=== PATIENT | male | born 1955 | race Caucasian/White ===

== ENCOUNTER 2017-08-07 12:53 | Emergency (ER) | payer OTHER ==
[~2017-08-07] VITALS: Ht 185.4 cm; Wt 88.5 kg
[2017-08-07 13:44] LABS: Eosinophils # (auto) 0.1 uL
[2017-08-07 13:45] LABS: Basophils # (auto) 0.1 uL; Basophils % (auto) 0.7 % (0.0-2.0); Eosinophils % (auto) 0.9 % (0.0-7.0); Hematocrit 52.4 % (41.0-53.0); Hemoglobin 17.5 g/dL (13.5-17.5); Lymphocytes # (auto) 1.3 uL; Lymphocytes % (auto) 14.8 % (10.0-50.0); Mean Corpuscular Hemoglobin 34.7 pg (28.0-32.0); Mean Corpuscular Hgb Conc. 33.5 g/dL (32.0-36.0); Mean Corpuscular Volume 103.6 fL (80.0-100.0); Mean Platelet Volume 7.8 fL (6.9-10.8); Monocytes # (auto) 0.6 uL; Monocytes % (auto) 7.4 % (0.0-12.0); Neutrophils # (auto) 6.7 uL; Neutrophils % (auto) 76.2 % (37.0-80.0); Platelet Count (auto) 262 10^3/uL (140-450); Red Cell Distribution Width 14.2 % (11.8-14.3); White Blood Cell 8.8 10^3/uL (4.4-10.8)
[2017-08-07 14:08] LABS: Albumin 4.1 g/dL (3.4-5.0); BUN/Creatinine Ratio 10.5; Bilirubin, Total 0.4 mg/dL (0.2-1.0); Calcium 9.4 mg/dL (8.5-10.1); Total Protein 7.9 g/dL (6.4-8.2)
[2017-08-07 14:40] LABS: Potassium 5.7 mmol/L (3.5-5.1)
[2017-08-07 14:52] VITALS: BP 142/88
[2017-08-07 15:20] LABS: Urine Bilirubin Negative (Negative); Urine Blood Negative /uL (Negative); Urine Color Yellow (Yellow); Urine Glucose TRACE mg/dL (Normal); Urine Ketone Negative (Negative); Urine Mucus FEW (None Seen); Urine Nitrite Negative (Negative); Urine RBC 1 /hpf (0 - 3); Urine Sperm PRESENT /hpf (None Seen); Urine Squamous Epithelial Cell FEW /hpf (<5); Urine Urobilinogen Normal (Negative); Urine pH 5.5 (5.0-8.0)
== END 2017-08-07 15:56 | disposition home or self-care (01) ==
LOC: ER 12:53
DX: K80.20 Calculus of gallbladder without cholecystitis without obstruction (principal); I10 Essential (primary) hypertension; F17.210 Nicotine dependence, cigarettes, uncomplicated
CPT/HCPCS: 36415; 74176; 80053; 81001; 84132; 85025; 93005

== ENCOUNTER 2019-12-20 08:31 | Inpatient (IN) | payer OTHER, SELFPAY ==
[~2019-12-20] VITALS: Ht 185.4 cm; Wt 89.6 kg
[2019-12-20] MEDS ORDERED: dilTIAZem 25 MG/5 ML VIAL IV ONE (09:00)
[2019-12-20] MEDS ORDERED: dilTIAZem 125mg/125ml BAG KIT 125 ML IV ONE (09:00)
[2019-12-20 09:42] LABS: Basophils # (auto) 0 10 ^3/uL (0-0.2); Basophils % (auto) 0.3 % (0.0-2.0); Eosinophils # (auto) 0 10 ^3/uL (0-0.8); Eosinophils % (auto) 0.1 % (0.0-7.0); Hematocrit 48.6 % (41.0-53.0); Hemoglobin 16.7 g/dL (13.5-17.5); Lymphocytes # (auto) 0.9 10 ^3/uL (0.4-5.4); Lymphocytes % (auto) 9.1 % (10.0-50.0); Mean Corpuscular Hemoglobin 32.3 pg (28.0-32.0); Mean Corpuscular Hgb Conc. 34.4 g/dL (32.0-36.0); Mean Corpuscular Volume 93.8 fL (80.0-100.0); Monocytes # (auto) 0.8 10 ^3/uL (0-1.3); Monocytes % (auto) 7.7 % (0.0-12.0); Neutrophils # (auto) 8.1 10 ^3/uL (1.6-8.6); Neutrophils % (auto) 82.8 % (37.0-80.0); Nucleated Red Blood Cells % 0.1 %; Red Blood Cells 5.18 10^6/uL (4.5-5.90); Red Cell Distribution Width 13.8 % (11.8-14.3); White Blood Cell 9.8 10^3/uL (4.4-10.8)
[2019-12-20 09:59] LABS: Albumin 2.9 g/dL (3.4-5.0); Anion Gap 9 (5-15); Calcium 8.2 mg/dL (8.5-10.1); Carbon Dioxide 23 mmol/L (21-32); Chloride 106 mmol/L (98-107); Glucose 112 mg/dL (74-106); Potassium 3.6 mmol/L (3.5-5.1); Sodium 138 mmol/L (136-145)
[2019-12-20 10:04] LABS: Alanine Aminotransferase 24 U/L (16-61); Alkaline Phosphatase 91 U/L (45-117); Aspartate Aminotransferase 26 U/L (15-37); Bilirubin, Total 0.5 mg/dL (0.2-1.0); GFR African American 95 mL/min; GFR Non-African American 79 mL/min; Platelet Count (auto) 165 10^3/uL (140-450); Total Protein 7.4 g/dL (6.4-8.2)
[2019-12-20] MEDS ORDERED: SODIUM CHLORIDE 0.9% 1,000 ML IV ONE ×2 (11:00→12:45)
[2019-12-20 11:28] LABS: BUN/Creatinine Ratio 14.7; Blood Urea Nitrogen 15 mg/dL (7-18)
[2019-12-20 12:00] VITALS: BP 122/75
[2019-12-20] MEDS ORDERED: ACETAMINOPHEN 325 MG TAB PO ONE (12:00)
[2019-12-20 12:04] LABS: Urine Bacteria NONE SEEN /hpf (None Seen); Urine Blood Negative /uL (Negative); Urine Hyaline Cast FEW /lpf (0 - 2); Urine Mucus FEW (None Seen); Urine WBC 2 /hpf (0 - 3)
[2019-12-20] MEDS ORDERED: AZITHROMYCIN 500MG/ 250ML 250 ML IV ONE (12:15)
[2019-12-20] MEDS ORDERED: CHOLECALCIFEROL (VITD3) 1,000UNIT=25mCg TAB PO ONE (12:15)
[2019-12-20] MEDS ORDERED: ASCORBIC ACID 500 MG TAB PO ONE (12:15)
[2019-12-20] MEDS ORDERED: ZINC SULFATE 220mg CAP or TAB PO ONE (12:15)
[2019-12-20 12:20] LABS: Amphetamine Screen, Urine POSITIVE (NEGATIVE); Barbiturate Scree,Urine NEGATIVE (NEGATIVE); Benzodiazephine Screen, Urine NEGATIVE (NEGATIVE); Cannabinoid Screen, Urine NEGATIVE (NEGATIVE); Cocaine Screen, Urine NEGATIVE (NEGATIVE); Phencyclidine Screen, Urine NEGATIVE (NEGATIVE)
[2019-12-20 12:27] LABS: Opiate Scree,Urine POSITIVE (NEGATIVE)
[2019-12-20] MEDS ORDERED: AMIODARONE HCL 150 MG in D5W 5% 100 ML IV ONE (13:30)
[2019-12-20] MEDS ORDERED: hydrALAZINE HCL 20 MG/ML VL IV PRN (13:30)
[2019-12-20] MEDS ORDERED: NITROGLYCERIN 0.4 MG SL TAB SL PRN (13:30)
[2019-12-20] MEDS ORDERED: ACETAMINOPHEN 325 MG TAB PO PRN (13:30)
[2019-12-20] MEDS ORDERED: PROMETHAZINE HCL 25 MG/ML 1ML IV PRN (13:30)
[2019-12-20] MEDS ORDERED: AMIODARONE 450mg/250ml AE 250 ML IV SCH (13:30)
[2019-12-20] MEDS ORDERED: LEVALBUTEROL HCL 1.25 MG/3 ML NEB NEB PRN (13:30)
[2019-12-20] MEDS ORDERED: MORPHINE SULF INJ 2 MG/ML SYRINGE 1ML IV PRN (13:30)
--- NOTE | 2019-12-20 14:41 | NUR ---
Received Belt Measurer consult to speak with pt about illicit drugs. However pt is still in the Er and he is a R/O Covid. Will see pt when he is transferred to the [facility].
[2019-12-20 16:00] VITALS: BP 124/75
--- NOTE | 2019-12-20 16:17 | NUR ---
Admit to [facility], [facility] 1510 [facility] gurney on front desk monitor, and portable 02. Patient transfered to bed, connected to unit monitoring and oxygen, and weighed by bedscale. Patient oriented to Dawn Lawrence, RN primary RN, unit, room, bed, and unit policies regarding patient care and visiting hours. All questions and concerns addressed, patient verbalized understanding. NOTE: Arrived awake and interacting appropriately. Was in AFIB RVR upon arrival to ER and medication intervention done. Arrived in NSR with a rate at 96. Will continue with amiodarone protocol as ordered. Remains weak but can move all extremties and participate with self care. Is a rule out Covid-19 and isolation precations put in place and explained to patient.
[2019-12-20 16:23] VITALS: BP 120/74
--- NOTE | 2019-12-20 18:51 | NUR ---
Has been sleeping since arrival in unit. Only ate a few bites of dinner. In no acute distress and vitals signs remain stable. Continue current plan of care.
--- NOTE | 2019-12-20 19:15 | NUR ---
OPENING NOTE RECEIVED REPORT FROM SAMREEN RN. PATIENT IN ISOLATION FOR POSSIBLE COVID-19. FOLLOWING HOSPITAL POLICY FOR COVID ISOLATIONS. PT AOX4, REQUESTING PAIN PILL FOR 7/10 PAIN AND REQUESTING SLEEPING MEDICATION SAYING HE HASN'T SLEPT WELL SINCE ARRIVAL TO HOSPITAL. ON 2L NC STATING >95% SPO2 WITH RESPIRATIONS 25-28. PATIENT STATES IT IS DIFFICULT TO BREATH. HOB >30, PROMOTED BREATHING AND RESPIRATIONS. SR 97 ON GERIATRICIAN, WITH BP 128/81. AMIO @ 33.33M/HR. COMMUNICATION ORDER TO STOP AMIO AT MIDNIGHT PER MCCLELLAND. RIGHT AND LEFT AC IV PATENT. PATIENT INSTRUCTED TO USE CALL LIGHT FOR ASSISTANCE. ALL FALL AND SAFETY PRECAUTIONS IN PLACE. FOR MORE INFORMATIONS SEE INTERVENTIONS.
[2019-12-20] MEDS: HYDROcodone-ACET 5/325MG TAB PO PRN (20:41)
[2019-12-20] MEDS ORDERED: TEMAZEPAM 15 MG CAP PO ONE (20:45)
--- NOTE | 2019-12-20 20:47 | NUR ---
PATIENT COMPLAINING OF INSOMNIA PAGED MD WILDER ORDER FOR SLEEPING MEDICATION. ORDER RECEIVED
[2019-12-20] MEDS: ALBUTEROL SULF HFA 90MCG INH 200DOSE IN SCH (21:37)
[2019-12-20] MEDS: ENOXAPARIN SOD 100 MG/1 ML SYRINGE SC SCH (22:08)
[2019-12-20 23:23] VITALS: BP 120/74
--- NOTE | 2019-12-21 | NUR ---
BRENDA HELD AT THIS TIME.
[2019-12-21 04:00] VITALS: BP 119/64
[2019-12-21 05:49] LABS: Basophils # (auto) 0 10 ^3/uL (0-0.2); Basophils % (auto) 0.2 % (0.0-2.0); Eosinophils # (auto) 0 10 ^3/uL (0-0.8); Hematocrit 45.3 % (41.0-53.0); Hemoglobin 15.1 g/dL (13.5-17.5); Lymphocytes # (auto) 0.7 10 ^3/uL (0.4-5.4); Lymphocytes % (auto) 9.1 % (10.0-50.0); Mean Corpuscular Hemoglobin 31.4 pg (28.0-32.0); Mean Corpuscular Hgb Conc. 33.3 g/dL (32.0-36.0); Mean Corpuscular Volume 94.3 fL (80.0-100.0); Monocytes # (auto) 0.7 10 ^3/uL (0-1.3); Monocytes % (auto) 8.8 % (0.0-12.0); Neutrophils # (auto) 6.3 10 ^3/uL (1.6-8.6); Neutrophils % (auto) 81.9 % (37.0-80.0); Nucleated Red Blood Cells % 0.1 %; Platelet Count (auto) 180 10^3/uL (140-450); Red Blood Cells 4.81 10^6/uL (4.5-5.90); Red Cell Distribution Width 13.7 % (11.8-14.3); White Blood Cell 7.7 10^3/uL (4.4-10.8)
[2019-12-21 06:00] VITALS: BP 123/74
[2019-12-21 06:04] LABS: Calcium 7.9 mg/dL (8.5-10.1); Potassium 3.5 mmol/L (3.5-5.1)
[2019-12-21 06:06] LABS: BUN/Creatinine Ratio 14.5
[2019-12-21] MEDS: ALBUTEROL SULF HFA 90MCG INH 200DOSE IN SCH ×3 (06:32→22:00)
[2019-12-21 08:00] VITALS: BP 103/60
--- NOTE | 2019-12-21 08:00 | NUR ---
ASSESSMENT COMPLETED - SEE FLOW SHEET. PATIENT REMAINS IN AIRBORNE/DROPLET ISOLATION FOR R/O COVID.
[2019-12-21] MEDS: ENOXAPARIN SOD 100 MG/1 ML SYRINGE SC SCH ×2 (10:26→22:00)
[2019-12-21 12:00] VITALS: BP 114/67
--- NOTE | 2019-12-21 13:50 | NUR ---
Respiratory note: RN ABLE TO ADMINISTER BREATHING TX VIA MDI WITH SPACER, NO ADVERSE REACTIONS NOTED. SPO2 95% ON 2L NC, HR 87, RR 25, BS COARSE/DIMINISHED. WILL CONTINUE TO MONITOR PT.
--- NOTE | 2019-12-21 15:45 | NUR ---
OCCASIONAL COUGH NOTED - PATIENT STATES EXPECTORATING SM AMT THIN WHITE SPUTUM. LUNGS REMAIN CLEAR AND DIMINISHED BILAT.
[2019-12-21 16:00] VITALS: BP 126/67
--- NOTE | 2019-12-21 16:45 | NUR ---
CALL PLACED TO DR CARLIN RE: NO ATB FOR PATIENT AND K+ 3.5 - ORDER RECEIVED VIA [employer].
--- NOTE | 2019-12-21 17:10 | NUR ---
PLACED CALL TO DR CARLIN RE: PULMONARY CONSULT - NO ORDERS RECEIVED, STATES WILL COME SEE PATIENT THIS EVENING.
[2019-12-21] MEDS ORDERED: POTASSIUM CHL 20 Meq TABLET PO ONE (17:15)
[2019-12-21] MEDS ORDERED: levoFLOXacin 500MG 100 ML IV SCH (17:15)
--- NOTE | 2019-12-21 19:45 | NUR ---
Opening Shift Note: A&Ox4, resting in bed. Currently on 2LO2 via NC; patient states he does not wear at home; pain level is 8-10/10 generalized; and currently bedrest, at baseline is independent without the use of assistive devices. Bed locked in lowest position, side rails up x2, call light within reach, and bed alarm on for patient safety. Airborne/contact/droplet precautions (r/o COVID 19); results still pending. IV 18 g in left AC IID inserted on 12/20/19. Skin intact, no open wounds. POC discussed and questions answered. Will continue to round/reposition prn.
[2019-12-21 20:00] VITALS: BP 110/68
[2019-12-21] MEDS: HYDROcodone-ACET 5/325MG TAB PO PRN (20:00)
--- NOTE | 2019-12-21 22:00 | NUR ---
RT NOTE RT NOTE MDI GIVEN BY RN WITHOUT INCIDENT. RT MADE SURE RN WAS FAMILIAR WITH THE PROPER ADMINISTRATION OF MDI.
[2019-12-22] VITALS: BP_SYST 113; BP_SYST 128; BP_DIAS 68; BP_DIAS 79
[2019-12-22] MEDS ORDERED: AMIODARONE HCL (50 MG/ ML) 3 ML VIAL IV ONE (00:32)
[2019-12-22] MEDS ORDERED: AMIODARONE 450mg/250ml AE 250 ML IV ONE (00:32)
[2019-12-22] MEDS ORDERED: AMIODARONE HCL 150 MG in D5W 5% 100 ML IV ONE (00:45)
--- NOTE | 2019-12-22 00:45 | NUR ---
Rhythm conversion to Aflutter: Per security system technician, patient rhythm changed from ST with PACs to Aflutter/Afib in the 100s to 130s. Per Dr. Banda telephone order, ok to start amiodarone drip protocol again if rhythm changed to Afib. Started bolus and will follow protocol orders.
[2019-12-22] MEDS ORDERED: AMIODARONE 450mg/250ml AE 250 ML IV SCH ×2 (00:52→06:52)
[2019-12-22 04:00] VITALS: BP 121/64
[2019-12-22 06:32] LABS: Basophils # (auto) 0 10 ^3/uL (0-0.2); Basophils % (auto) 0.4 % (0.0-2.0); Eosinophils # (auto) 0 10 ^3/uL (0-0.8); Eosinophils % (auto) 0.2 % (0.0-7.0); Hematocrit 44.6 % (41.0-53.0); Lymphocytes # (auto) 0.7 10 ^3/uL (0.4-5.4); Lymphocytes % (auto) 8.3 % (10.0-50.0); Mean Corpuscular Hemoglobin 31.7 pg (28.0-32.0); Mean Corpuscular Hgb Conc. 33.7 g/dL (32.0-36.0); Mean Corpuscular Volume 94.1 fL (80.0-100.0); Neutrophils # (auto) 6.7 10 ^3/uL (1.6-8.6); Neutrophils % (auto) 79.1 % (37.0-80.0); Nucleated Red Blood Cells % 0.1 %; Platelet Count (auto) 214 10^3/uL (140-450); Red Blood Cells 4.74 10^6/uL (4.5-5.90); Red Cell Distribution Width 13.5 % (11.8-14.3); White Blood Cell 8.5 10^3/uL (4.4-10.8)
[2019-12-22] MEDS: ALBUTEROL SULF HFA 90MCG INH 200DOSE IN SCH ×3 (06:37→22:31)
[2019-12-22 06:57] LABS: Potassium 4.1 mmol/L (3.5-5.1)
[2019-12-22 07:20] LABS: BUN/Creatinine Ratio 13.4; Calcium 8.3 mg/dL (8.5-10.1)
--- NOTE | 2019-12-22 07:30 | NUR ---
Positive COVID -19 test per Norma in lab. CCT to pickup results and will place in patient's hard chart.
[2019-12-22 08:00] VITALS: BP 104/66
--- NOTE | 2019-12-22 08:00 | NUR ---
MD Paged Dr. Trinidad to notify him of critical lab: POSITIVE COVID-19. Awaiting for MD to call back.
--- NOTE | 2019-12-22 08:55 | NUR ---
MD Dr. Promise Saxena called and updated on patient condition, aware of AM labs and new orders received, to input into system. Awaiting for orders to be placed in system. Addendum: 12/22/19 at 0859 by BLAINE JEAN RN WRONG PATIENT VOID THIS NOTE
--- NOTE | 2019-12-22 08:55 | NUR ---
MD Dr. Promise Saxena called back and aware of critical labs with no new orders received.
[2019-12-22] MEDS: ENOXAPARIN SOD 100 MG/1 ML SYRINGE SC SCH ×2 (09:52→22:55)
--- NOTE | 2019-12-22 10:00 | NUR ---
NUTRITION Patient ate 100% of breakfast. Patient tolerated well.
--- NOTE | 2019-12-22 10:55 | NUR ---
MD Dr. Dhillon at unit updated on patient condition with no new orders received. Will continue to monitor patient.
[2019-12-22 12:00] VITALS: BP 106/72
[2019-12-22] MEDS: AMIODARONE 450mg/250ml AE 250 ML IV SCH ×2 (12:00→22:57)
--- NOTE | 2019-12-22 12:15 | NUR ---
Received phone call from Dr. Promise Saxena regarding: new orders input in system. states "he spoke to patient and informed him of being COVID-19.
--- NOTE | 2019-12-22 13:24 | NUR ---
Called Dr. Arias at [phone] Trinidad to get treatment orders for COVID-19. Awaiting call back.
--- NOTE | 2019-12-22 13:30 | NUR ---
Paged Dr. Dhillon awaiting for to call this RN back for Amiodarone orders for PO.
--- NOTE | 2019-12-22 14:00 | NUR ---
NUTRITION Patient ate 100% of lunch. Patient tolerated well.
[2019-12-22 16:00] VITALS: BP 117/62
[2019-12-22] MEDS ORDERED: hydrOXYchloroQUINE SULFATE 200 MG TAB PO ONE (16:45)
--- NOTE | 2019-12-22 16:50 | NUR ---
MD Dr. Arias at bedside updated on patient condition with new orders, this RN to input into system. Will carry out orders per MD.
[2019-12-22] MEDS ORDERED: ZINC SULFATE 220mg CAP or TAB PO ONE (18:00)
[2019-12-22] MEDS ORDERED: ASCORBIC ACID 500 MG TAB PO ONE (18:00)
[2019-12-22] MEDS ORDERED: CHOLECALCIFEROL (VITD3) 1,000UNIT=25mCg TAB PO ONE (18:00)
[2019-12-22] MEDS: HYDROcodone-ACET 5/325MG TAB PO PRN (18:54)
[2019-12-22 20:00] VITALS: BP 116/63
--- NOTE | 2019-12-22 20:00 | NUR ---
Opening Shift Note Assumed care of patient with airborn isolation, awake and alert. Breathing on O2NC 1LPM, No S/S of distress/SOB, occasional coughing, will taper off O2 to room air and monitor as order. 20G IV at right AC infusing Amiodarone 0.5/hr, CDI site, will page Dr. Dhillon per Dr. Promise Saxena order regarding changing Amiodarone IV to PO. Due to void. Bed in low position, call light within reach, fall and safety precaution in place, all alarms are audible. Instructed on POC and to call for assist PRN, will continue to monitor for changes Q1hr and PRN.
[2019-12-22] MEDS: SODIUM CHLORIDE 0.9% 1,000 ML IV SCH (20:27)
--- NOTE | 2019-12-22 20:30 | NUR ---
D/C Amiodarone, Afib Paged Dr. Dhillon regarding Amiodarone, ordered to d/c amiodarone IV, no Amiodarone PO to start, TORB and verified. Amiodarone d/c at 20.30pm 21.15pm EKG turned back and forth between SR, ST with PAC, MAT, Af and AF rate low 100's to 160's. SBP 110's, will continue to monitor and page MD if sustained. 21.41pm Paged Dr. Dhillon. 22.46pm Paged Dr. Dhillon, ordered to resume Amiodarone IV at 0.5/hr.
--- NOTE | 2019-12-22 21:00 | NUR ---
Sleeping pill Pt requested sleeping pill, paged Dr. Promise Saxena. New order received from covering MD, Dr. Rocha, see EMAR for details.
[2019-12-22] MEDS ORDERED: TEMAZEPAM 15 MG CAP PO ONE (21:45)
[2019-12-22] MEDS ORDERED: hydrOXYchloroQUINE SULFATE 200 MG TAB PO SCH (22:00)
[2019-12-22] MEDS ORDERED: AZITHROMYCIN DIHYD 500 MG VIAL IV SCH (22:00)
[2019-12-22] MEDS ORDERED: AZITHROMYCIN 500MG/ 250ML 250 ML IV ONE (22:59)
[2019-12-23] MEDS ORDERED: ZINC SULFATE 220mg CAP or TAB PO SCH
[2019-12-23] MEDS ORDERED: AZITHROMYCIN 500MG/ 250ML 250 ML IV SCH
[2019-12-23 01:17] LABS: Magnesium 2.5 mg/dL (1.6-2.6)
[2019-12-23 01:26] LABS: CRP High Sensitivity 11.3 mg/dL (< 0.3)
[2019-12-23] MEDS: AMIODARONE 450mg/250ml AE 250 ML IV SCH (03:28)
--- NOTE | 2019-12-23 03:55 | NUR ---
Patient bathe/linen change Patient given bed bath. Pt able to wipe self at the front and private area, assisted Pt clean the back area. Skin integrity assessed for any changes, no new changes. Linens changed. Pt able to turn self well, reported mild SOB with activities. Patient repositioned for comfort.
[2019-12-23 04:00] VITALS: BP 85/55
[2019-12-23] MEDS: ALBUTEROL SULF HFA 90MCG INH 200DOSE IN SCH ×3 (06:00→22:15)
[2019-12-23 07:16] LABS: Basophils # (auto) 0 10 ^3/uL (0-0.2); Basophils % (auto) 0.6 % (0.0-2.0); Eosinophils # (auto) 0 10 ^3/uL (0-0.8); Eosinophils % (auto) 0.3 % (0.0-7.0); Hemoglobin 14.7 g/dL (13.5-17.5); Lymphocytes # (auto) 0.6 10 ^3/uL (0.4-5.4); Lymphocytes % (auto) 7.6 % (10.0-50.0); Mean Corpuscular Hemoglobin 32.2 pg (28.0-32.0); Mean Corpuscular Hgb Conc. 34.3 g/dL (32.0-36.0); Mean Corpuscular Volume 93.9 fL (80.0-100.0); Monocytes # (auto) 0.9 10 ^3/uL (0-1.3); Monocytes % (auto) 11.5 % (0.0-12.0); Neutrophils # (auto) 6.1 10 ^3/uL (1.6-8.6); Platelet Count (auto) 250 10^3/uL (140-450); Red Blood Cells 4.58 10^6/uL (4.5-5.90); Red Cell Distribution Width 13.2 % (11.8-14.3); White Blood Cell 7.6 10^3/uL (4.4-10.8)
[2019-12-23 07:46] LABS: Albumin 2.4 g/dL (3.4-5.0); Calcium 8.1 mg/dL (8.5-10.1); Potassium 3.8 mmol/L (3.5-5.1)
[2019-12-23 07:50] LABS: BUN/Creatinine Ratio 13.4; Bilirubin, Total 0.6 mg/dL (0.2-1.0); Total Protein 6.8 g/dL (6.4-8.2)
[2019-12-23] MEDS: SODIUM CHLORIDE 0.9% 1,000 ML IV SCH ×2 (07:57→17:53)
[2019-12-23] MEDS: ASCORBIC ACID 500 MG TAB PO SCH (08:50)
[2019-12-23] MEDS: ENOXAPARIN SOD 100 MG/1 ML SYRINGE SC SCH ×2 (08:50→20:50)
[2019-12-23] MEDS: CHOLECALCIFEROL (VITD3) 1,000UNIT=25mCg TAB PO SCH (08:50)
[2019-12-23] MEDS: ZINC SULFATE 220mg CAP or TAB PO SCH (08:50)
[2019-12-23] MEDS: HYDROcodone-ACET 5/325MG TAB PO PRN ×2 (09:10→20:30)
--- NOTE | 2019-12-23 14:25 | NUR ---
DR. WHITE AT BEDSIDE: MD AT BEDSIDE, ASSESSING PATIENT IN ROOM AT THIS TIME SEE COVID -19 LOG IN SHEET. MD UPDATED ON PT'S STATUS, LABS, HEMODYNAMICS AND RESP. ASSESSMENT. MD WANTING CXR IN AM. OTHER ORDERS GIVEN AT THIS TIME AND TO BE CARRIED OUT. SEE ORDERS AND CHART FOR FURTHER PATIENT INFORMATION. MD TALKING WITH PATIENT AT BEDSIDE. CONTINUE CARE. WILL CONTINUE TO MONITOR CLOSELY.
--- NOTE | 2019-12-23 15:15 | NUR ---
Received Cornetist Consult to see pt for substance abuse. Pt is alert and oriented times 4. postal worker unable to go into pt's room due to Covid19. Will wait until pt is out of isolation to discuss resources and facilities. Pt is in agreement. Addendum: 12/23/19 at 1522 by LYNN HSU SS Amended: Links added.
--- NOTE | 2019-12-23 16:00 | NUR ---
DC AMIODARONE GTT PER DR. MCCLELLAND OVER THE PHONE, STATED HE DOES NOT WANT ANY AMIODARONE FOR PATIENT NOW OR AT ANY TIME DURING PATIENT'S HOSPITAL STAY. TALKED WITH MD AT 1545 DC'D AMIODARONE GTT AT 1600. DAILY EKG'S TO BE DONE ON PATIENT STARTING NOW, TILL DC HOME. PER DR. MCCLELLAND. EKG TAKEN AT THIS TIME, SEE CHART. CURRENT QT INTERVAL AT 0.[address] MCCLELLAND. CURRENT EKG SR RIT PROBABLE LEFT ATRIAL ENLARGEMENT AND RIGHT AXIS DEVIATION. CONTINUE CARE.
[2019-12-23] MEDS ORDERED: ALPRAZolam 0.5 MG TAB PO PRN (17:45)
--- NOTE | 2019-12-23 19:00 | NUR ---
Opening Shift Note Assumed care of patient, awake and alert. No S/S of distress/SOB or pain. Instructed on POC and to call for assist PRN, will continue to monitor for changes Q1hr and PRN.
--- NOTE | 2019-12-23 19:30 | NUR ---
LOG IN / LOG OUT TIMES FOLLOWED. FOR MY SHIFT, MY ASSESSMENTS, PATIENT CARES IN /OUT [id number] - [phone] - [phone] - [phone] - [phone] - [phone] CLUSTER CARES PREFORMED DURING THESE TIMES. SEE RN ASSESSMENTS, V/S FLOW SHEET AND EMAR FOR FURTHER PATIENT INFORMATION. WILL TRANSFER CARE TO NOC RN. MCNEILL. REPORT GIVEN AT THIS TIME ALSO .
[2019-12-23 19:55] VITALS: BP 94/59
--- NOTE | 2019-12-23 20:00 | NUR ---
Promise Camacho Dr. RN paged primary MD for patient update.
--- NOTE | 2019-12-23 20:20 | NUR ---
Rivas Santos returned page: Per , RN is to taper patient off his oxygen and call MD back with results.
--- NOTE | 2019-12-23 20:25 | NUR ---
Patient weaned down to one liter supplemental oxygen. RN will continue to monitor and assess patient's oxygen saturation.
--- NOTE | 2019-12-23 20:45 | NUR ---
Urine output: Patient urinated 400mL into urinal.
[2019-12-23] MEDS: AZITHROMYCIN 500MG/ 250ML 250 ML IV SCH (20:50)
--- NOTE | 2019-12-23 21:35 | NUR ---
Patient weaned down to room air. RN will continue to monitor and assess patient's oxygen saturation.
--- NOTE | 2019-12-23 21:57 | NUR ---
Patient holding an O2 sat of 90% on RA. RN will continue to monitor and assess.
--- NOTE | 2019-12-23 22:00 | NUR ---
Patient began to de-sat at 86%, RN placed patient back on 1L NC. O2 sat increased to 93%.
--- NOTE | 2019-12-23 22:15 | NUR ---
Respiratory note: JOSELITO MCNEILL ADMINISTERED PT'S SCHEDULED ALBUTEROL MDI TREATMENT AT 2215. NO DISTRESS NOTED. HR 81 RR 18 POX 94% ON 2L NASAL CANNULA.
--- NOTE | 2019-12-23 22:19 | NUR ---
RN paged Dr. Saxena: Primary MD paged to give an update on patient status after attempting to wean off supplemental oxygen.
--- NOTE | 2019-12-23 22:56 | NUR ---
RN re-paged Rivas Santos: Primary MD was re-paged to give an update on patient status after attempting to wean off supplemental oxygen and patient currently remains at 1L NC and saturating at 95%.
[2019-12-24] VITALS (21 sets, daily range): BP systolic 75–122; BP diastolic 48–73
--- NOTE | 2019-12-24 00:30 | NUR ---
Patient moved to room 110 with all appropriate PPE in place. Patient tolerated move well with no discomfort or distress.
[2019-12-24 00:51] LABS: Free T4 (Free Thyroxine) 1.04 ng/dL (0.89-1.76); T3 Total 1.08 ng/mL (0.60-1.81)
[2019-12-24 00:52] LABS: Free T3 2.43 pg/mL (2.3-4.2)
--- NOTE | 2019-12-24 00:52 | NUR ---
Low blood pressure reading: Patient was noted to have a low blood pressure reading of 79/44. RN provided repositioning of the patient and blood pressure cuff and elevated patient's bilateral lower extremities and retook patient's blood pressure and received a reading of 90/59 with a HR of 82. RN will continue to monitor and assess patient.
--- NOTE | 2019-12-24 01:52 | NUR ---
Urine output: Patient urinated 500mL into urinal.
--- NOTE | 2019-12-24 04:50 | NUR ---
Urine output: Patient urinated 400mL into urinal.
--- NOTE | 2019-12-24 04:55 | NUR ---
Daily EKG performed on patient per Dr. Banda request and placed in patient's chart.
[2019-12-24] MEDS: ALBUTEROL SULF HFA 90MCG INH 200DOSE IN SCH ×3 (05:49→21:00)
--- NOTE | 2019-12-24 06:00 | NUR ---
Respiratory note: SCHEDULED 0600 BREATHING TX ADMINISTERED BY RN. WILL RETURN FOR NEXT SCHEDULED TX.
--- NOTE | 2019-12-24 07:36 | NUR ---
REPORT RECEIVED FROM BLADE GRADER OPERATOR RN
--- NOTE | 2019-12-24 08:05 | NUR ---
BREAKFAST TRAY PROVIDED TO PATIENT
--- NOTE | 2019-12-24 08:29 | NUR ---
BLOOD SENT TO LAB VIA BULLET
[2019-12-24 08:37] LABS: Basophils # (auto) 0 10 ^3/uL (0-0.2); Basophils % (auto) 0.4 % (0.0-2.0); Eosinophils # (auto) 0.1 10 ^3/uL (0-0.8); Eosinophils % (auto) 1.1 % (0.0-7.0); Hematocrit 38.1 % (41.0-53.0); Lymphocytes # (auto) 0.4 10 ^3/uL (0.4-5.4); Lymphocytes % (auto) 8.2 % (10.0-50.0); Mean Corpuscular Hemoglobin 32.3 pg (28.0-32.0); Mean Corpuscular Hgb Conc. 34.2 g/dL (32.0-36.0); Mean Corpuscular Volume 94.3 fL (80.0-100.0); Monocytes # (auto) 0.6 10 ^3/uL (0-1.3); Monocytes % (auto) 12.1 % (0.0-12.0); Neutrophils # (auto) 4.1 10 ^3/uL (1.6-8.6); Neutrophils % (auto) 78.2 % (37.0-80.0); Nucleated Red Blood Cells % 0.2 %; Platelet Count (auto) 233 10^3/uL (140-450); Red Blood Cells 4.04 10^6/uL (4.5-5.90); Red Cell Distribution Width 13.5 % (11.8-14.3); White Blood Cell 5.3 10^3/uL (4.4-10.8)
[2019-12-24] MEDS: ZINC SULFATE 220mg CAP or TAB PO SCH (09:31)
--- NOTE | 2019-12-24 09:31 | NUR ---
ZINC PER PHARMACY NO ZINC AVAILABLE AT THIS TIME MEDICATION ON BACKORDER
[2019-12-24] MEDS: SODIUM CHLORIDE 0.9% 1,000 ML IV SCH ×2 (09:52→22:36)
[2019-12-24] MEDS: CHOLECALCIFEROL (VITD3) 1,000UNIT=25mCg TAB PO SCH (09:53)
[2019-12-24] MEDS: ENOXAPARIN SOD 100 MG/1 ML SYRINGE SC SCH ×2 (09:53→22:00)
[2019-12-24] MEDS: ASCORBIC ACID 500 MG TAB PO SCH (09:53)
[2019-12-24 11:14] LABS: BUN/Creatinine Ratio 11.8; Calcium 8.5 mg/dL (8.5-10.1); Potassium 3.9 mmol/L (3.5-5.1)
--- NOTE | 2019-12-24 11:34 | NUR ---
PATIENT RESTING NO S/S OF DISTRESS OR DISCOMFORT AT THIS TIME
--- NOTE | 2019-12-24 14:05 | NUR ---
BREATHING TX BREATHING TX ADMINISTERED VIA MDI WITH SPACER. PT TOLERATED WELL, NO ADVERSE REACTIONS NOTED. SPO2 96% ON 1LPM NASAL CANNULA, NO S/S OF RESPIRATORY DISTRESS NOTED.
--- NOTE | 2019-12-24 14:13 | NUR ---
Initial Assessment Pt is a 64 yr old male who is alert and oriented times 4. He was admitted to the hospital after showing signs of Covid 19. He was admitted to ER on Monday. Then he was admitted to [facility]. He lives with his significant other who will assist if necessary. Pt's primary is Dr Mejia in [place]. Gave pt's nurse resources for substance abuse issues. However due to his condition social sciences instructor will have to return to speak with pt prior to his discharge.
--- NOTE | 2019-12-24 14:15 | NUR ---
NUTRITION ASSESSMENT NOTES Please refer to link notes of nutrition screen form filed under the intervention section of the plan of care for further details. Est. Energy Needs: 7513-1591 kcal (20-25 kcal/kg BW). Est. Protein Needs: 108-135 gms/day (1.2-1.5 gms/kg BW). Will continue to monitor pertinent labs and reassess nutrient need prn Addendum: 12/24/19 at [address] Amended: Links added.
--- NOTE | 2019-12-24 14:29 | NUR ---
Initial assessment Pt is alert and oriented times 4. He lives with his significant other. Pt states he is normally independent and able to take care of himself. He can fix his meals and take care of ADLS. Pt does have a primary physician, Dr Mejia. He has never had Home Health. but would probably benefit from Home Health on discharge due to his weakness. Pt states his significant other is also able to assist him. Informed pt that social group worker received a referral from ER physician to address the issues of pt's alcoholism . Will give pt a list of resources via his nurse regarding substance abuse.
--- NOTE | 2019-12-24 14:56 | NUR ---
Pt moved to ICU. Unable to converse with pt. Will follow up.
--- NOTE | 2019-12-24 15:27 | NUR ---
PATIENT PLACED ON ROOM AIR
--- NOTE | 2019-12-24 15:40 | NUR ---
02 SATURATION 86-87% ON ROOM AIR OXYGEN PLACED AT 2 LNC
--- NOTE | 2019-12-24 15:48 | NUR ---
EKG CHANGES EKG OBTAINED AND PLACED IN CHART WILL INFORM MD
--- NOTE | 2019-12-24 15:59 | NUR ---
DR. STAS STUART
--- NOTE | 2019-12-24 16:08 | NUR ---
DR. MCCLELLAND CALLBACK UPDATED ON PATIENT STATUS AND EKG, PATIENT BACK IN SR WITH NO ECTOPY AT THIS TIME. NO ORDERS RECEIVED AT THIS TIME
--- NOTE | 2019-12-24 18:15 | NUR ---
PATIENT AFIB RVR DR. STAS STUART
[2019-12-24] MEDS: HYDROcodone-ACET 5/325MG TAB PO PRN (18:16)
--- NOTE | 2019-12-24 20:30 | NUR ---
S/W DR. MCCLELLAND RE: AFIB IN THE 130-140'S; RX FOR P.O. METOPROLOL 25MG BID AND START FIRST DOSE TONIGHT.
[2019-12-24] MEDS: METOPROLOL TARTRATE 25 MG TAB PO SCH (22:29)
[2019-12-24] MEDS: AZITHROMYCIN 500MG/ 250ML 250 ML IV SCH (22:29)
[2019-12-25] VITALS (7 sets, daily range): BP systolic 91–109; BP diastolic 41–71
--- NOTE | 2019-12-25 04:14 | NUR ---
REPORT GIVEN TO ANASTASIIARN AND PT. TO TRANSFER TO RM. #[id number].
--- NOTE | 2019-12-25 04:50 | NUR ---
PT. OFF THE UNIT AND TRANSFERRED TO RM# [id number].
--- NOTE | 2019-12-25 04:56 | NUR ---
ICU patient transferred to floor SBAR and confirmed receipt by Charlette. ARIEL DEE transfered to [place] [id number] via [facility] on restaurant hospitality manager and portable oxygen. All patient medications and personal belongings transferred with patient to receiving floor. Patient care transferred to [place]. NOTE:
--- NOTE | 2019-12-25 07:30 | NUR ---
Opening Shift Note Assumed care of patient, awake and alert. No S/S of distress/SOB. Pt rated pain at 5/10 at this time. Bed in lowest and locked position with side rails up x2 and call light within reach. Instructed on POC and to call for assist PRN, will continue to monitor for changes Q1hr and PRN.
[2019-12-25] MEDS: ALBUTEROL SULF HFA 90MCG INH 200DOSE IN SCH ×2 (08:45→14:00)
--- NOTE | 2019-12-25 08:45 | NUR ---
Respiratory note: BREATHING TX ADMINISTERED VIA MDI WITH SPACER. PT TOLERATED WELL, NO ADVERSE REACTIONS NOTED. HR 56, RR 18, SPO2 95% ON 2LPM NASAL CANNULA. NO S/S OF RESPIRATORY DISTRESS NOTED.
[2019-12-25] MEDS: METOPROLOL TARTRATE 25 MG TAB PO SCH (09:25)
[2019-12-25] MEDS: HYDROcodone-ACET 5/325MG TAB PO PRN (09:25)
[2019-12-25] MEDS: ASCORBIC ACID 500 MG TAB PO SCH (09:26)
[2019-12-25] MEDS: ENOXAPARIN SOD 100 MG/1 ML SYRINGE SC SCH (09:27)
[2019-12-25] MEDS: ZINC SULFATE 220mg CAP or TAB PO SCH (10:00)
--- NOTE | 2019-12-25 11:18 | NUR ---
PAGED DR. MCCLELLAND. AWAITING CALL BACK.
--- NOTE | 2019-12-25 11:19 | NUR ---
PAGED DR. ART. AWAITING CALL BACK.
--- NOTE | 2019-12-25 11:30 | NUR ---
SPOKE TO DR. MCCLELLAND. PER DR. MCCLELLAND, THE PATIENT IS CLEAR FOR DISCHARGE WITH THE RECOMMENDATION OF ELIQUIS 5MG PO BID AFTER DISCHARGED. RN TO NOTIFY PRIMARY.
[2019-12-25] MEDS: CHOLECALCIFEROL (VITD3) 1,000UNIT=25mCg TAB PO SCH (13:29)
[2019-12-25] MEDS: SODIUM CHLORIDE 0.9% 1,000 ML IV SCH (13:58)
--- NOTE | 2019-12-25 14:00 | NUR ---
Respiratory note: PT SELF-ADMINISTERED BREATHING TX VIA MDI WITH SPACER, NO ADVERSE REACTIONS NOTED. RN IS AWARE. PT DENIES ANY SOB AT THIS TIME. WILL RETURN FOR NEXT SCHEDULED TX.
--- NOTE | 2019-12-25 15:27 | NUR ---
SPOKE TO DR. ART. PER DR. ART THE PATIENT IS CLEAR FOR DISCHARGE.
--- NOTE | 2019-12-25 16:39 | NUR ---
D/C Planning Per SS consult for home oxygen. Faxed clinical information to [facility] requesting authorization and [facility] to deliver home oxygen to front lobby. Per BRUCE Acevedo with [facility] authorization for oxygen is [id number]. Per Damaris with [facility] ETA is pending. Advised Damaris to follow up with bedside nurse at ext, [phone] with a ETA. Informed JOSELITO Sherman.
[2019-12-25] MEDS ORDERED: AZIT500T66 PO (17:27)
[2019-12-25] MEDS ORDERED: ASCO500T11 PO (17:27)
[2019-12-25] MEDS ORDERED: ALBUAER3 IN (17:27)
--- NOTE | 2019-12-25 17:52 | NUR ---
RN OBTAINED [facility] ACTIVE DIRECTORY ENGINEER PHONE NUMBER FROM DR. Promise BECKWITH. PER DR. BECKWITH THE PATIENT CAN GO HOME ONCE THE ACTIVE DIRECTORY ENGINEER STATES THAT THE HOME HEALTH WILL BE SET UP. RN CALLED AND SPOKE TO [facility] ACTIVE DIRECTORY ENGINEER, DWAYNE. PHONE NUMBER [phone]. PER DWAYNE, THE PATIENT IS OKAY TO BE DISCHARGED AND THE HOME HEALTH WILL BE SET UP.
--- NOTE | 2019-12-25 18:00 | NUR ---
HOME OXYGEN DELIVERED TO PATIENT VIA RN. RN EDUCATED PATIENT ON HOW TO USE THE HOME OXYGEN AND THE RISKS AND BENEFITS OF THE OXYGEN. RN EDUCATED PATIENT NOT TO SMOKE WHILE USING THE OXYGEN. PATIENT VERBALIZED UNDERSTANDING.
--- NOTE | 2019-12-25 20:05 | NUR ---
Opening Shift Note Assumed care of patient, awake and alert. No S/S of distress/SOB or pain. Instructed on POC and to call for assist PRN, will continue to monitor for changes Q1hr and PRN. Patient aware of discharge for tonight.
--- NOTE | 2019-12-25 21:58 | NUR ---
Discharge Patient wheelchair down with oxygen tank, N95 mask on wrap on a blanket.
--- NOTE | 2019-12-26 15:24 | NUR ---
D/C Planning Per SS consult for home health safety evaluation (+) COVID -19. Spike Machine Feeder Kristina with [facility] advised me to fax order to [facility]. Faxed clinical information to [facility] home health. Per business representative with [facility] they are unable to accept patient at the moment. Redirected order to [facility] home health. Advised Genna with [facility] patient is (+) for COVID-19. Per Genna with [facility] they will follow patient within 24-48hrs upon d/c day. Notify BRUCE Acevedo with [facility].
[2019-12-30] MEDS ORDERED: APIX5TAB OR (11:41)
[2019-12-30] MEDS ORDERED: ERGO20002 PO (11:51)
== END 2019-12-25 22:44 | disposition home or self-care (01) | DRG 177 ==
LOC: ER 08:31 → TELE 08:32 → DOU IN ICU 15:08 → ICU WEST 15:29 → TELE-EAST 12-25 04:50
PROVIDERS: ADMIT Internal Medicine; ATTEND Internal Medicine
DX: U07.1 COVID-19 (principal); J12.89 Other viral pneumonia; J96.00 Acute respiratory failure, unspecified whether with hypoxia or hypercapnia; J98.11 Atelectasis; J44.0 Chronic obstructive pulmonary disease with (acute) lower respiratory infection; I48.0 Paroxysmal atrial fibrillation; R51 Headache; M79.10 Myalgia, unspecified site; R00.0 Tachycardia, unspecified; F15.10 Other stimulant abuse, uncomplicated; J44.9 Chronic obstructive pulmonary disease, unspecified; F17.210 Nicotine dependence, cigarettes, uncomplicated; G62.9 Polyneuropathy, unspecified; Z85.46 Personal history of malignant neoplasm of prostate
CPT/HCPCS: 36415; 71045; 80048; 80053; 80307; 81001; 82728; 83605; 83615; 83735; 84439; 84443; 84480; 84481; 84484; 85025; 85379; 86141; 87040; 87070; 87081; 87804; 87880; 93005; 94640; 96361; 96365; 96366; 96375; G0378; J1956; J7060

== ENCOUNTER 2023-03-23 17:51 | Inpatient (IN) | payer OTHER ==
[~2023-03-23] VITALS: Ht 185.4 cm; Wt 84.1 kg
[~2023-03-23 17:51] MED LIST: ALBUAER3 IN; AMIO200T13 PO; APIX2.5T PO; APIX5TAB OR; ASCO500T11 PO; ATOR20TA50 PO; AZIT500T66 PO; DOXY-286 PO; ERGO20002 PO; HYDR-4798 PO; METO25TA5 PO
[2023-03-23 18:30] VITALS: PULSE 123; RESP 18; O2SAT 95
[2023-03-23] MEDS ORDERED: dilTIAZem 25 MG/5 ML VIAL IV ONE (18:30)
[2023-03-23 19:21] LABS: Basophils # (auto) 0 10 ^3/uL (0-0.2); Basophils % (auto) 0.2 % (0.0-2.0); Eosinophils # (auto) 0.3 10 ^3/uL (0-0.8); Eosinophils % (auto) 2.5 % (0.0-7.0); Hematocrit 42.7 % (41.0-53.0); Hemoglobin 14.2 g/dL (13.5-17.5); Lymphocytes # (auto) 1.4 10 ^3/uL (0.4-5.4); Lymphocytes % (auto) 12.8 % (10.0-50.0); Mean Corpuscular Hemoglobin 29.7 pg (28.0-32.0); Mean Corpuscular Hgb Conc. 33.3 g/dL (32.0-36.0); Mean Corpuscular Volume 89.1 fL (80.0-100.0); Monocytes # (auto) 0.9 10 ^3/uL (0-1.3); Monocytes % (auto) 8.1 % (0.0-12.0); Neutrophils # (auto) 8.4 10 ^3/uL (1.6-8.6); Neutrophils % (auto) 76.4 % (37.0-80.0); Red Blood Cells 4.79 10^6/uL (4.5-5.90); Red Cell Distribution Width 13.8 % (11.8-14.3); White Blood Cell 10.9 10^3/uL (4.4-10.8)
[2023-03-23 20:00] VITALS: PULSE 99; RESP 22; O2SAT 94
[2023-03-23 20:00] LABS: Albumin 2.7 g/dL (3.4-5.0); Calcium 8.7 mg/dL (8.5-10.1); Potassium 4.1 mmol/L (3.5-5.1)
[2023-03-23 20:03] LABS: BUN/Creatinine Ratio 12.5 (10.0-20.0); Bilirubin, Total 0.2 mg/dL (0.2-1.0)
[2023-03-23 20:06] LABS: Blood Alcohol < 3.0 mg/dL (<10); Lipase 144 U/L (73-393)
[2023-03-23] MEDS ORDERED: IOHEXOL 350 MG/ML 100ML IJ ONE (20:23)
[2023-03-23] MEDS ORDERED: AMIODARONE HCL 200 MG TAB PO ONE (20:45)
[2023-03-23] MEDS ORDERED: NITROGLYCERIN 0.4 MG SL TAB SL PRN (20:45)
[2023-03-23] MEDS ORDERED: ONDANSETRON HCL 4 MG/2 ML VIAL IV PRN (20:45)
[2023-03-23] MEDS ORDERED: ACETAMINOPHEN 325 MG TAB PO PRN (20:45)
[2023-03-23] MEDS ORDERED: MORPHINE SULFATE INJ 2 MG/ml SYRG IV PRN (20:45)
[2023-03-23] MEDS ORDERED: TEMAZEPAM 15 MG CAP PO PRN (20:45)
[2023-03-23] MEDS: ATORVASTATIN 20 MG TAB PO SCH (21:40)
[2023-03-23] MEDS ORDERED: APIXABAN 5 MG TAB PO SCH (22:00)
[2023-03-23 23:42] VITALS: BP 120/68; PULSE 102; RESP 18; TEMP 98; O2SAT 94
[2023-03-24] VITALS (7 sets, daily range): BP systolic 102–121; BP diastolic 0–80; PULSE 75–96; RESP 16–91; TEMP 97.8–98.7; O2SAT 92–98
[2023-03-24] MEDS ORDERED: SIMV40TA18 PO (04:37)
[2023-03-24 05:19] LABS: Urine Bacteria NONE SEEN /hpf (None Seen); Urine Blood Negative /uL (Negative); Urine Clarity Clear (Clear); Urine Color Colorless (Yellow); Urine Protein, UAD Negative (Negative); Urine Specific Gravity 1.033 (1.001-1.035); Urine Urobilinogen Normal (Negative); Urine WBC <1 /hpf (0 - 3)
[2023-03-24 05:41] LABS: Alcohol, Urine < 3.0 mg/dL (0-10); Amphetamine Screen, Urine POSITIVE (NEGATIVE); Barbiturate Scree,Urine NEGATIVE (NEGATIVE); Benzodiazephine Screen, Urine NEGATIVE (NEGATIVE); Cannabinoid Screen, Urine NEGATIVE (NEGATIVE)
[2023-03-24 05:49] LABS: Cocaine Screen, Urine NEGATIVE (NEGATIVE); Opiate Scree,Urine NEGATIVE (NEGATIVE); Phencyclidine Screen, Urine NEGATIVE (NEGATIVE)
[2023-03-24 07:15] LABS: Potassium 4.4 mmol/L (3.5-5.1)
[2023-03-24 07:19] LABS: BUN/Creatinine Ratio 11.2 (10.0-20.0); Calcium 8.7 mg/dL (8.5-10.1)
[2023-03-24 09:27] LABS: Magnesium 2.4 mg/dL (1.6-2.6)
[2023-03-24] MEDS: ENOXAPARIN SOD 100 MG/1 ML SYRINGE SC SCH ×2 (10:42→21:49)
[2023-03-24] MEDS: PANTOPRAZOLE 40 MG TAB PO SCH (10:42)
[2023-03-24] MEDS: METOPROLOL SUCCINATE XL 50 MG TAB PO SCH (10:43)
[2023-03-24] MEDS: AMIODARONE HCL 200 MG TAB PO SCH (10:43)
[2023-03-24] MEDS: cefTRIAXone 1GM/50ML D5W 50 ML IV SCH (13:28)
[2023-03-24] MEDS: AZITHROMYCIN 500MG/ 250ML 250 ML IV SCH (14:44)
[2023-03-24] MEDS: ATORVASTATIN 20 MG TAB PO SCH (21:47)
[2023-03-24] MEDS: HYDROcodone-ACET 5/325MG TAB PO PRN (21:49)
[2023-03-25] VITALS (7 sets, daily range): BP systolic 98–126; BP diastolic 0–77; PULSE 65–96; RESP 17–20; TEMP 98.1–98.7; O2SAT 93–97
[2023-03-25] MEDS: cefTRIAXone 1GM/50ML D5W 50 ML IV SCH (09:01)
[2023-03-25] MEDS: PANTOPRAZOLE 40 MG TAB PO SCH (09:02)
[2023-03-25] MEDS: ENOXAPARIN SOD 100 MG/1 ML SYRINGE SC SCH ×2 (09:02→22:25)
[2023-03-25] MEDS: AMIODARONE HCL 200 MG TAB PO SCH (09:02)
[2023-03-25] MEDS: METOPROLOL SUCCINATE XL 50 MG TAB PO SCH (09:03)
[2023-03-25] MEDS: AZITHROMYCIN 500MG/ 250ML 250 ML IV SCH (11:05)
[2023-03-25] MEDS: ATORVASTATIN 20 MG TAB PO SCH (22:24)
[2023-03-25] MEDS: HYDROcodone-ACET 5/325MG TAB PO PRN (22:26)
[2023-03-26] VITALS (8 sets, daily range): BP systolic 103–119; BP diastolic 0–70; PULSE 65–85; RESP 16–18; TEMP 97.9–98.3; O2SAT 95–98
[2023-03-26] MEDS: HYDROcodone-ACET 5/325MG TAB PO PRN (05:58)
[2023-03-26 06:34] LABS: Basophils # (auto) 0.1 10 ^3/uL (0-0.2); Basophils % (auto) 0.7 % (0.0-2.0); Eosinophils # (auto) 0.3 10 ^3/uL (0-0.8); Eosinophils % (auto) 2.2 % (0.0-7.0); Hematocrit 45.6 % (41.0-53.0); Hemoglobin 14.8 g/dL (13.5-17.5); Lymphocytes # (auto) 1.5 10 ^3/uL (0.4-5.4); Lymphocytes % (auto) 12.3 % (10.0-50.0); Mean Corpuscular Hemoglobin 29.9 pg (28.0-32.0); Mean Corpuscular Hgb Conc. 32.5 g/dL (32.0-36.0); Mean Corpuscular Volume 92.1 fL (80.0-100.0); Monocytes # (auto) 0.9 10 ^3/uL (0-1.3); Monocytes % (auto) 7.5 % (0.0-12.0); Neutrophils # (auto) 9.2 10 ^3/uL (1.6-8.6); Neutrophils % (auto) 77.3 % (37.0-80.0); Nucleated Red Blood Cells % 0.1 %; Red Blood Cells 4.95 10^6/uL (4.5-5.90); White Blood Cell 11.9 10^3/uL (4.4-10.8)
[2023-03-26 06:36] LABS: Albumin 2.9 g/dL (3.4-5.0); Calcium 8.7 mg/dL (8.5-10.1); Magnesium 2.5 mg/dL (1.6-2.6); Potassium 4.5 mmol/L (3.5-5.1)
[2023-03-26 06:45] LABS: BUN/Creatinine Ratio 13.4 (10.0-20.0); Bilirubin, Total 0.4 mg/dL (0.2-1.0); Total Protein 7.3 g/dL (6.4-8.2)
[2023-03-26 07:20] LABS: INR 1.09 (0.9-1.15); Partial Thromboplastin Time 31.9 SEC (24.5-34.5); Prothrombin Time 11.4 sec (9.3-11.8)
[2023-03-26] MEDS: cefTRIAXone 1GM/50ML D5W 50 ML IV SCH (08:51)
[2023-03-26] MEDS: PANTOPRAZOLE 40 MG TAB PO SCH (08:58)
[2023-03-26] MEDS: METOPROLOL SUCCINATE XL 50 MG TAB PO SCH (08:58)
[2023-03-26] MEDS: AMIODARONE HCL 200 MG TAB PO SCH (09:03)
[2023-03-26] MEDS: AZITHROMYCIN 500MG/ 250ML 250 ML IV SCH (09:55)
[2023-03-26] MEDS: ENOXAPARIN SOD 100 MG/1 ML SYRINGE SC SCH ×2 (10:00→15:31)
[2023-03-26] MEDS: ATORVASTATIN 20 MG TAB PO SCH (21:32)
[2023-03-27] VITALS (7 sets, daily range): BP systolic 104–127; BP diastolic 0–71; PULSE 52–86; RESP 12–18; TEMP 97–98.9; O2SAT 94–100
[2023-03-27 07:26] LABS: INR 1.03 (0.9-1.15); Prothrombin Time 10.8 sec (9.3-11.8)
[2023-03-27 07:27] LABS: Partial Thromboplastin Time 28.7 SEC (24.5-34.5)
[2023-03-27] MEDS: ENOXAPARIN SOD 100 MG/1 ML SYRINGE SC SCH ×2 (07:33→21:57)
[2023-03-27] MEDS: cefTRIAXone 1GM/50ML D5W 50 ML IV SCH (09:07)
[2023-03-27] MEDS: AZITHROMYCIN 500MG/ 250ML 250 ML IV SCH (09:07)
[2023-03-27] MEDS ORDERED: fentaNYL CITRATE 100 MCG/2 ML VL IV ONE (11:00)
[2023-03-27] MEDS ORDERED: MIDAZOLAM HCL 2MG/2ML 2ml VIAL (1mg/ml) IV ONE (11:00)
[2023-03-27] MEDS ORDERED: LIDOCAINE 2%HCL (LOCAL ANESTH.) INJ 10ml MDV ONE (11:09)
[2023-03-27 12:29] LABS: Hepatitis B Surface Antigen Negative (Negative); Hepatitis C Antibody Negative (Negative)
[2023-03-27] MEDS: METOPROLOL SUCCINATE XL 50 MG TAB PO SCH (12:47)
[2023-03-27] MEDS: AMIODARONE HCL 200 MG TAB PO SCH (12:47)
[2023-03-27] MEDS: HYDROcodone-ACET 5/325MG TAB PO PRN (15:19)
[2023-03-27] MEDS: ATORVASTATIN 20 MG TAB PO SCH (21:57)
[2023-03-28] MEDS: HYDROcodone-ACET 5/325MG TAB PO PRN (04:09)
[2023-03-28 05:00] VITALS: BP 105/63; PULSE 83; RESP 18; TEMP 99.1; O2SAT 96
[2023-03-28 08:00] VITALS: BP_DIAS 0; PULSE 73
[2023-03-28 09:00] VITALS: BP 108/64; PULSE 80; RESP 20; TEMP 98; O2SAT 96
[2023-03-28] MEDS: cefTRIAXone 1GM/50ML D5W 50 ML IV SCH (09:09)
[2023-03-28] MEDS: AZITHROMYCIN 500MG/ 250ML 250 ML IV SCH (09:09)
[2023-03-28] MEDS: AMIODARONE HCL 200 MG TAB PO SCH (09:09)
[2023-03-28] MEDS: METOPROLOL SUCCINATE XL 50 MG TAB PO SCH (09:10)
[2023-03-28] MEDS: ENOXAPARIN SOD 100 MG/1 ML SYRINGE SC SCH (10:29)
[2023-03-28] MEDS ORDERED: APIX5TAB PO (12:38)
[2023-03-28] MEDS ORDERED: ALBUAER3 IN (12:38)
[2023-03-28] MEDS ORDERED: METO-6 PO (12:38)
[2023-03-28] MEDS ORDERED: AMIO200T33 PO (12:38)
[2023-03-28] MEDS ORDERED: ATOR40TA52 PO (12:38)
== END 2023-03-28 15:15 | disposition home or self-care (01) | DRG 181 ==
LOC: EDBD 17:51 → EDUNIT# 17:51 → ER 17:51 → TELE 20:42 → UNDOADMIN 20:42 → WEST WING 20:42 → TELE-WESTW 23:26
PROVIDERS: ADMIT Nurse Practitioner; ATTEND Internal Medicine Geriatric Medicine
PROC: 0BBC3ZX Excision of Right Upper Lung Lobe, Percutaneous Approach, Diagnostic (ICD-10-PCS; principal; 2023-03-27)
DX: C34.11 Malignant neoplasm of upper lobe, right bronchus or lung (principal); J93.9 Pneumothorax, unspecified; I48.91 Unspecified atrial fibrillation; R91.8 Other nonspecific abnormal finding of lung field; F15.10 Other stimulant abuse, uncomplicated; I10 Essential (primary) hypertension; G62.9 Polyneuropathy, unspecified; R59.0 Localized enlarged lymph nodes; E78.5 Hyperlipidemia, unspecified; F17.210 Nicotine dependence, cigarettes, uncomplicated; J44.9 Chronic obstructive pulmonary disease, unspecified; F10.90 Alcohol use, unspecified, uncomplicated; Z80.1 Family history of malignant neoplasm of trachea, bronchus and lung; Z82.3 Family history of stroke; Z83.3 Family history of diabetes mellitus; Z91.199 Patient's noncompliance with other medical treatment and regimen due to unspecified reason
CPT/HCPCS: 10005; 36415; 71045; 71250; 71275; 77012; 80048; 80053; 80061; 80307; 80320; 81001; 83036; 83690; 83735; 83880; 84443; 84484; 85025; 85379; 85610; 85730; 86803; 86850; 86900; 86901; 87081; 87340; 93005; 93306; G0378; J0696; J2001; J2250

== ENCOUNTER 2023-07-04 08:53 | Inpatient (IN) | payer OTHER, MEDICAID ==
[~2023-07-04] VITALS: Ht 185.4 cm; Wt 80.7 kg
[~2023-07-04 08:53] MED LIST changes: +AMIO200T33 PO; -APIX2.5T PO; +APIX5TAB PO; +ATOR40TA52 PO; -AZIT500T66 PO; -DOXY-286 PO; -HYDR-4798 PO; +METO-6 PO; +SIMV40TA18 PO
[2023-07-04 09:26] LABS: Basophils # (auto) 0.1 10 ^3/uL (0-0.2); Hemoglobin 12.9 g/dL (13.5-17.5)
[2023-07-04 09:28] LABS: Basophils % (auto) 0.7 % (0.0-2.0); Eosinophils # (auto) 0.5 10 ^3/uL (0-0.8); Eosinophils % (auto) 3.2 % (0.0-7.0); Hematocrit 39.7 % (41.0-53.0); Lymphocytes # (auto) 1.9 10 ^3/uL (0.4-5.4); Lymphocytes % (auto) 13.7 % (10.0-50.0); Mean Corpuscular Hemoglobin 28.3 pg (28.0-32.0); Mean Corpuscular Hgb Conc. 32.6 g/dL (32.0-36.0); Mean Corpuscular Volume 86.9 fL (80.0-100.0); Monocytes # (auto) 1.3 10 ^3/uL (0-1.3); Monocytes % (auto) 9.3 % (0.0-12.0); Neutrophils # (auto) 10.2 10 ^3/uL (1.6-8.6); Neutrophils % (auto) 73.1 % (37.0-80.0); Nucleated Red Blood Cells % 0.1 %; Red Blood Cells 4.56 10^6/uL (4.5-5.90); Red Cell Distribution Width 15.8 % (11.8-14.3)
[2023-07-04 09:35] LABS: Alanine Aminotransferase 12 U/L (7-40); Albumin 4.1 g/dL (3.2-4.8); Alkaline Phosphatase 121 U/L (46-116); Anion Gap 5 (5-15); Aspartate Aminotransferase 11 U/L (13-40); BUN/Creatinine Ratio 14.7 (10.0-20.0); Blood Urea Nitrogen 17 mg/dL (9-23); Calcium 9.2 mg/dL (8.5-10.1); Carbon Dioxide 30 mmol/L (20-30); Chloride 102 mmol/L (98-107); Glucose 122 mg/dL (74-106); Potassium 4.6 mmol/L (3.5-5.1); Sodium 137 mmol/L (136-145)
[2023-07-04 09:36] LABS: Bilirubin, Total 0.3 mg/dL (0.2-1.0); Total Protein 7.4 g/dL (5.7-8.2)
[2023-07-04 11:18] LABS: Amphetamine Screen, Urine Pos (NEGATIVE); Barbiturate Scree,Urine Neg (NEGATIVE); Benzodiazephine Screen, Urine Neg (NEGATIVE); Cannabinoid Screen, Urine Neg (NEGATIVE); Cocaine Screen, Urine Neg (NEGATIVE); Opiate Scree,Urine Neg (NEGATIVE); Phencyclidine Screen, Urine Neg (NEGATIVE)
[2023-07-04 11:22] VITALS: PULSE 79; RESP 14; O2SAT 97
[2023-07-04 11:47] LABS: Urine Bacteria NONE SEEN /hpf (None Seen); Urine Blood Negative /uL (Negative); Urine Clarity Clear (Clear); Urine Color Yellow (Yellow); Urine Hyaline Cast FEW /lpf (0 - 2); Urine Mucus FEW (None Seen); Urine Protein, UAD TRACE (Negative); Urine Specific Gravity 1.027 (1.001-1.035); Urine Urobilinogen Normal (Negative); Urine WBC <1 /hpf (0 - 3); Urine pH 5.5 (5.0-8.0)
[2023-07-04] MEDS ORDERED: MORPHINE SULFATE INJ 2 MG/ml SYRG IV PRN ×2 (13:30)
[2023-07-04] MEDS ORDERED: ENOXAPARIN SOD 100 MG/1 ML SYRINGE SC SCH (13:30)
[2023-07-04] MEDS ORDERED: HYDROcodone-ACET 5/325MG TAB PO PRN (13:30)
[2023-07-04] MEDS ORDERED: NITROGLYCERIN 0.4 MG SL TAB SL PRN (13:30)
[2023-07-04] MEDS ORDERED: ACETAMINOPHEN 325 MG TAB PO PRN (13:30)
[2023-07-04] MEDS ORDERED: DOCUSATE SOD 100 MG CAP PO PRN (13:30)
[2023-07-04] MEDS ORDERED: cefTRIAXone 1GM/50ML D5W 50 ML IV ONE (13:45)
[2023-07-04] MEDS ORDERED: LORazepam 2MG/ML-1ML VIAL IV PRN (13:45)
[2023-07-04 14:21] LABS: INR 1.09 (0.9-1.15); Partial Thromboplastin Time 30.5 SEC (24.5-34.5); Prothrombin Time 11.4 sec (9.3-11.8)
[2023-07-04] MEDS ORDERED: AZITHROMYCIN 500MG/ 250ML 250 ML IV ONE (14:30)
[2023-07-04] MEDS: ENOXAPARIN SOD 80 MG/0.8ML SYRINGE SC SCH ×2 (14:39→22:47)
[2023-07-04] MEDS: ATORVASTATIN 20 MG TAB PO SCH (22:52)
[2023-07-05] VITALS (8 sets, daily range): BP systolic 91–118; BP diastolic 52–75; PULSE 70–86; RESP 16–20; TEMP 97.6–98.7; O2SAT 93–96
[2023-07-05 07:06] LABS: Basophils # (auto) 0.1 10 ^3/uL (0-0.2); Basophils % (auto) 0.7 % (0.0-2.0); Eosinophils # (auto) 0.3 10 ^3/uL (0-0.8); Eosinophils % (auto) 2.7 % (0.0-7.0); Hemoglobin 12.2 g/dL (13.5-17.5); Lymphocytes # (auto) 1.2 10 ^3/uL (0.4-5.4); Lymphocytes % (auto) 9.7 % (10.0-50.0); Mean Corpuscular Hemoglobin 28.2 pg (28.0-32.0); Mean Corpuscular Hgb Conc. 32.9 g/dL (32.0-36.0); Mean Corpuscular Volume 85.8 fL (80.0-100.0); Monocytes # (auto) 1.1 10 ^3/uL (0-1.3); Monocytes % (auto) 8.6 % (0.0-12.0); Neutrophils # (auto) 9.8 10 ^3/uL (1.6-8.6); Neutrophils % (auto) 78.3 % (37.0-80.0); Red Blood Cells 4.31 10^6/uL (4.5-5.90); Red Cell Distribution Width 15.8 % (11.8-14.3); White Blood Cell 12.5 10^3/uL (4.4-10.8)
[2023-07-05 07:16] LABS: Albumin 3.8 g/dL (3.2-4.8); Alkaline Phosphatase 110 U/L (46-116); Anion Gap 6 (5-15); Aspartate Aminotransferase 9 U/L (13-40); BUN/Creatinine Ratio 12.5 (10.0-20.0); Blood Urea Nitrogen 15 mg/dL (9-23); Calcium 9.2 mg/dL (8.5-10.1); Carbon Dioxide 27 mmol/L (20-30); Chloride 104 mmol/L (98-107); Glucose 107 mg/dL (74-106); Potassium 4.2 mmol/L (3.5-5.1); Sodium 137 mmol/L (136-145)
[2023-07-05 07:17] LABS: Bilirubin, Total 0.3 mg/dL (0.2-1.0); Total Protein 7.3 g/dL (5.7-8.2)
[2023-07-05 07:18] LABS: Alanine Aminotransferase < 9 U/L (7-40)
[2023-07-05] MEDS ORDERED: cefTRIAXone 1GM/50ML D5W 50 ML IV SCH (09:00)
[2023-07-05] MEDS: THIAMINE HCL 100 MG TAB PO SCH (09:12)
[2023-07-05] MEDS: ENOXAPARIN SOD 80 MG/0.8ML SYRINGE SC SCH ×2 (09:12→21:52)
[2023-07-05] MEDS: MULTIPLE VITAMIN TAB PO SCH (09:12)
[2023-07-05] MEDS: METOPROLOL SUCCINATE XL 50 MG TAB PO SCH (09:13)
[2023-07-05] MEDS: FOLIC ACID 1 MG TAB PO SCH (09:13)
[2023-07-05] MEDS: AMIODARONE HCL 200 MG TAB PO SCH (09:14)
[2023-07-05] MEDS ORDERED: PATIENTS OWN MEDICATION (Atorvastatin Calcium 40 MG) PO SCH (10:00)
[2023-07-05] MEDS ORDERED: AZITHROMYCIN 500MG/ 250ML 250 ML IV SCH (10:00)
[2023-07-05] MEDS ORDERED: PANTOPRAZOLE 40 MG TAB PO SCH (10:00)
[2023-07-05] MEDS ORDERED: IOHEXOL 350 MG/ML 100ML IJ ONE (13:12)
[2023-07-05] MEDS ORDERED: PIPERACILLIN-TAZOB 3.375GM 100 ML IV ONE (16:00)
[2023-07-05] MEDS: PIPERACILLIN-TAZOB 3.375GM 100 ML IV SCH (17:33)
[2023-07-05] MEDS: ATORVASTATIN 20 MG TAB PO SCH (21:52)
[2023-07-06] MEDS: PIPERACILLIN-TAZOB 3.375GM 100 ML IV SCH ×3 (01:21→16:38)
[2023-07-06 01:25] LABS: COVID19 ANTIGEN SOFIA FIA NEGATIVE (NEGATIVE); Rapid Influenza A Negative (Negative); Rapid Influenza B Negative (Negative)
[2023-07-06 05:00] VITALS: BP 102/62; PULSE 70; RESP 20; TEMP 98.3; O2SAT 94
[2023-07-06 08:30] VITALS: BP 101/64; PULSE 77; PULSE 81; RESP 18; TEMP 97.4; O2SAT 97
[2023-07-06] MEDS: AMIODARONE HCL 200 MG TAB PO SCH (09:20)
[2023-07-06] MEDS: FOLIC ACID 1 MG TAB PO SCH (09:21)
[2023-07-06] MEDS: MULTIPLE VITAMIN TAB PO SCH (09:21)
[2023-07-06] MEDS: THIAMINE HCL 100 MG TAB PO SCH (09:21)
[2023-07-06] MEDS: METOPROLOL SUCCINATE XL 50 MG TAB PO SCH (09:26)
[2023-07-06] MEDS: ENOXAPARIN SOD 80 MG/0.8ML SYRINGE SC SCH ×2 (09:27→21:24)
[2023-07-06 12:30] VITALS: BP 94/63; PULSE 87; RESP 19; TEMP 98.5; O2SAT 97
[2023-07-06 16:36] VITALS: BP 107/66; PULSE 81; RESP 19; TEMP 99.1; O2SAT 94
[2023-07-06 20:00] VITALS: PULSE 87
[2023-07-06] MEDS: ATORVASTATIN 20 MG TAB PO SCH (21:24)
[2023-07-06 22:00] VITALS: BP 103/64; PULSE 89; RESP 20; TEMP 99.3; O2SAT 96
[2023-07-07] MEDS: PIPERACILLIN-TAZOB 3.375GM 100 ML IV SCH ×4 (01:54→23:24)
[2023-07-07 05:00] VITALS: BP 162/64; PULSE 95; RESP 20; TEMP 99; O2SAT 92
[2023-07-07 08:30] VITALS: PULSE 86; RESP 14
[2023-07-07 09:00] VITALS: BP 99/58; PULSE 92; RESP 15; TEMP 99; O2SAT 96
[2023-07-07] MEDS: THIAMINE HCL 100 MG TAB PO SCH (09:36)
[2023-07-07] MEDS: MULTIPLE VITAMIN TAB PO SCH (09:36)
[2023-07-07] MEDS: FOLIC ACID 1 MG TAB PO SCH (09:36)
[2023-07-07] MEDS: AMIODARONE HCL 200 MG TAB PO SCH (09:36)
[2023-07-07] MEDS: ENOXAPARIN SOD 80 MG/0.8ML SYRINGE SC SCH ×2 (09:36→21:53)
[2023-07-07] MEDS: METOPROLOL SUCCINATE XL 50 MG TAB PO SCH (09:43)
[2023-07-07] MEDS ORDERED: LINEZOLID 600MG TABLET PO SCH (11:30)
[2023-07-07 13:00] VITALS: BP 112/70; PULSE 71; RESP 14; TEMP 98.8; O2SAT 95
[2023-07-07] MEDS ORDERED: METOPROLOL TARTRATE 1MG/1ML-5ML VIAL IV ONE (13:30)
[2023-07-07 17:00] VITALS: BP 95/76; PULSE 96; RESP 13; TEMP 99.5; O2SAT 94
[2023-07-07 20:00] VITALS: PULSE 85
[2023-07-07] MEDS: ATORVASTATIN 20 MG TAB PO SCH (21:52)
[2023-07-08 05:00] VITALS: BP 102/64; PULSE 90; RESP 20; TEMP 98.9; O2SAT 95
[2023-07-08 08:00] VITALS: PULSE 81
[2023-07-08 08:20] VITALS: BP 104/64; PULSE 85; RESP 16; TEMP 98.6; O2SAT 94
[2023-07-08] MEDS: PIPERACILLIN-TAZOB 3.375GM 100 ML IV SCH (09:26)
[2023-07-08] MEDS: ENOXAPARIN SOD 80 MG/0.8ML SYRINGE SC SCH (09:26)
[2023-07-08] MEDS: AMIODARONE HCL 200 MG TAB PO SCH (09:26)
[2023-07-08] MEDS: FOLIC ACID 1 MG TAB PO SCH (09:27)
[2023-07-08] MEDS: THIAMINE HCL 100 MG TAB PO SCH (09:27)
[2023-07-08] MEDS: MULTIPLE VITAMIN TAB PO SCH (09:27)
[2023-07-08] MEDS: METOPROLOL SUCCINATE XL 50 MG TAB PO SCH (09:30)
[2023-07-08] MEDS ORDERED: BACDST PO (11:26)
[2023-07-08] MEDS ORDERED: AUG875T PO (11:26)
[2023-07-08 12:20] VITALS: BP 101/65; PULSE 82; RESP 20; TEMP 97.6; O2SAT 94
[2023-07-08 12:32] VITALS: BP 104/64; PULSE 81; RESP 18; TEMP 98.6; O2SAT 94
[2023-07-08] MEDS ORDERED: DOCUSATE SOD 100 MG CAP PO SCH (22:00)
== END 2023-07-08 13:50 | disposition home or self-care (01) | DRG 180 ==
LOC: ER 08:53 → TELE 13:29 → TELE-WESTW 07-05 02:14
PROVIDERS: ADMIT Nurse Practitioner Family; ATTEND Internal Medicine
DX: C34.91 Malignant neoplasm of unspecified part of right bronchus or lung (principal); J18.9 Pneumonia, unspecified organism; J44.0 Chronic obstructive pulmonary disease with (acute) lower respiratory infection; I50.32 Chronic diastolic (congestive) heart failure; I48.20 Chronic atrial fibrillation, unspecified; I24.9 Acute ischemic heart disease, unspecified; R04.2 Hemoptysis; I11.0 Hypertensive heart disease with heart failure; F15.10 Other stimulant abuse, uncomplicated; E78.5 Hyperlipidemia, unspecified; F10.10 Alcohol abuse, uncomplicated; Z20.822 Contact with and (suspected) exposure to COVID-19; G62.9 Polyneuropathy, unspecified; I25.2 Old myocardial infarction; Z79.899 Other long term (current) drug therapy; Z80.1 Family history of malignant neoplasm of trachea, bronchus and lung; Z82.3 Family history of stroke; Z83.3 Family history of diabetes mellitus; Z85.118 Personal history of other malignant neoplasm of bronchus and lung; Z85.46 Personal history of malignant neoplasm of prostate; Z85.828 Personal history of other malignant neoplasm of skin; Z87.891 Personal history of nicotine dependence; R06.03 Acute respiratory distress
CPT/HCPCS: 36415; 70470; 71046; 71275; 80053; 80307; 81001; 83735; 83880; 84484; 85025; 85379; 85610; 85730; 87040; 87081; 87086; 87426; 87804; 93005; 93970; 99291; G0378; J0696; J2543

== ENCOUNTER 2023-11-28 13:11 | Inpatient (IN) | payer BC, MEDICAID ==
[~2023-11-28] VITALS: Ht 175.3 cm; Wt 80.1 kg
[~2023-11-28 13:11] MED LIST changes: -AMIO200T13 PO; -APIX5TAB PO; -ATOR20TA50 PO; -ATOR40TA52 PO; +AUG875T PO; +BACDST PO; -METO25TA5 PO
[2023-11-28 14:20] LABS: Basophils # (auto) 0.2 10 ^3/uL (0-0.2); Eosinophils # (auto) 0.3 10 ^3/uL (0-0.8); Eosinophils % (auto) 1.7 % (0.0-7.0); Hematocrit 42.3 % (41.0-53.0); Hemoglobin 13.6 g/dL (13.5-17.5); Lymphocytes # (auto) 1.7 10 ^3/uL (0.4-5.4); Lymphocytes % (auto) 10.6 % (10.0-50.0); Mean Corpuscular Hemoglobin 28.7 pg (28.0-32.0); Mean Corpuscular Hgb Conc. 32.3 g/dL (32.0-36.0); Mean Corpuscular Volume 89.1 fL (80.0-100.0); Monocytes % (auto) 6.2 % (0.0-12.0); Neutrophils # (auto) 12.7 10 ^3/uL (1.6-8.6); Neutrophils % (auto) 80.5 % (37.0-80.0); Nucleated Red Blood Cells % 0.1 %; Red Blood Cells 4.74 10^6/uL (4.5-5.90); Red Cell Distribution Width 20.2 % (11.8-14.3); White Blood Cell 15.8 10^3/uL (4.4-10.8)
[2023-11-28 14:40] LABS: Albumin 3.8 g/dL (3.2-4.8); Alkaline Phosphatase 111 U/L (46-116); Anion Gap 7 (5-15); Aspartate Aminotransferase 13 U/L (13-40); BUN/Creatinine Ratio 10.5 (10.0-20.0); Bilirubin, Total 0.4 mg/dL (0.2-1.0); Blood Urea Nitrogen 9 mg/dL (9-23); Calcium 9.1 mg/dL (8.5-10.1); Carbon Dioxide 28 mmol/L (20-30); Chloride 106 mmol/L (98-107); Glucose 105 mg/dL (74-106); INR 1.08 (0.9-1.15); Partial Thromboplastin Time 31.6 SEC (24.5-34.5); Potassium 4.4 mmol/L (3.5-5.1); Prothrombin Time 11.3 sec (9.3-11.8); Sodium 141 mmol/L (136-145); Total Protein 6.5 g/dL (5.7-8.2)
[2023-11-28 14:49] LABS: Alanine Aminotransferase < 9 U/L (7-40)
[2023-11-28] MEDS: IPRATROPIUM BROM 0.5 MG/2.5ML INH SOL NEB ONE (15:55)
[2023-11-28] MEDS: ALBUTEROL SULF 2.5 MG/0.5ML(0.5%) NEB SOLN NEB ONE (15:55)
[2023-11-28] MEDS ORDERED: ONDANSETRON HCL 4 MG/2 ML VIAL IV PRN (16:00)
[2023-11-28] MEDS ORDERED: MORPHINE SULFATE INJ 2 MG/ml SYRG IV PRN ×2 (16:00)
[2023-11-28] MEDS ORDERED: ALBUTEROL SULF HFA 90MCG INH 200DOSE IN PRN (16:00)
[2023-11-28] MEDS ORDERED: NITROGLYCERIN 0.4 MG SL TAB SL PRN (16:00)
[2023-11-28 17:00] VITALS: PULSE 106; RESP 20; O2SAT 95
[2023-11-28] MEDS: methylPREDNISolone SOD SUCC 125 MG/2 ML VL IV ONE (17:11)
[2023-11-28] MEDS ORDERED: ALBUTEROL SULF 2.5 MG/0.5ML(0.5%) NEB SOLN NEB PRN (17:45)
[2023-11-28] MEDS: LEVALBUTEROL HCL 1.25 MG/3 ML NEB NEB SCH (19:41)
[2023-11-28] MEDS: BUDESONIDE (INHALATION) 0.5 MG/2 ML NEB NEB SCH (19:45)
[2023-11-29] VITALS (20 sets, daily range): BP systolic 98–114; BP diastolic 53–69; PULSE 88–103; RESP 16–22; TEMP 97.5–98.2; O2SAT 88–99
[2023-11-29] MEDS: PIPERACILLIN-TAZOB 3.375GM 100 ML IV ONE (01:21)
[2023-11-29] MEDS: IOHEXOL 300 MG/ML 100ML BOTTLE IJ ONE (01:22)
[2023-11-29] MEDS: FAMOTIDINE 20 MG TAB PO SCH (02:10)
[2023-11-29] MEDS: APIXABAN 5 MG TAB PO SCH (02:10)
[2023-11-29] MEDS: methylPREDNISolone SOD SUCC 40 MG/ML VL IV SCH (02:11)
[2023-11-29] MEDS: PIPERACILLIN-TAZOB 3.375GM 100 ML IV SCH (02:16)
[2023-11-29] MEDS: AMIODARONE HCL 200 MG TAB PO SCH (10:55)
[2023-11-29] MEDS: METOPROLOL SUCCINATE XL 50 MG TAB PO SCH (10:56)
[2023-11-29] MEDS: HYDROcodone-ACET 5/325MG TAB PO PRN (21:32)
[2023-11-29] MEDS: MELATONIN 5 MG TAB PO PRN (21:32)
[2023-11-30] VITALS (10 sets, daily range): BP systolic 90–100; BP diastolic 49–62; PULSE 87–97; RESP 16–20; TEMP 97.7–98.5; O2SAT 94–100
[2023-11-30] MEDS ORDERED: PRED20TA2 PO (14:47)
[2023-11-30] MEDS ORDERED: IPRA0.00 IN (14:47)
[2023-11-30] MEDS ORDERED: DOXY-448 PO (14:47)
== END 2023-11-30 16:30 | disposition home or self-care (01) | DRG 177 ==
LOC: EDBD 13:11 → ER 13:11 → TELE-WESTW 15:59 → TELE 15:59 → TELE-WESTW 11-29 09:43
PROVIDERS: ADMIT Hospitalist; ATTEND Hospitalist
DX: J15.69 Pneumonia due to other Gram-negative bacteria (principal); J96.01 Acute respiratory failure with hypoxia; J44.1 Chronic obstructive pulmonary disease with (acute) exacerbation; C34.91 Malignant neoplasm of unspecified part of right bronchus or lung; J44.0 Chronic obstructive pulmonary disease with (acute) lower respiratory infection; I11.0 Hypertensive heart disease with heart failure; I50.9 Heart failure, unspecified; I25.2 Old myocardial infarction; Z83.3 Family history of diabetes mellitus; Z87.891 Personal history of nicotine dependence; Z82.3 Family history of stroke; Z80.1 Family history of malignant neoplasm of trachea, bronchus and lung; J15.9 Unspecified bacterial pneumonia
CPT/HCPCS: 36415; 71045; 71260; 80053; 83880; 84484; 85025; 85610; 85730; 93005; 94640; 96374; 99291; G0378; J2543

== ENCOUNTER 2023-12-08 00:50 | Inpatient (IN) | payer BC, MEDICAID ==
[2023-12-08] VITALS (90 sets, daily range): BP systolic 74–182; BP diastolic 47–131; PULSE 90–155; RESP 16–26; TEMP 98.2–100.4; O2SAT 90–100
[~2023-12-08] VITALS: Ht 185.4 cm; Wt 78.0 kg
[~2023-12-08 00:50] MED LIST changes: -ASCO500T11 PO; -AUG875T PO; -BACDST PO; +DOXY-448 PO; +IPRA0.00 IN; +PRED20TA2 PO
[2023-12-08 01:29] LABS: Basophils # (auto) 0.2 10 ^3/uL (0-0.2); Eosinophils # (auto) 0.1 10 ^3/uL (0-0.8); Eosinophils % (auto) 0.8 % (0.0-7.0); Hematocrit 43.2 % (41.0-53.0); Hemoglobin 14.2 g/dL (13.5-17.5); Lymphocytes # (auto) 2.1 10 ^3/uL (0.4-5.4); Lymphocytes % (auto) 11.6 % (10.0-50.0); Mean Corpuscular Hemoglobin 29.2 pg (28.0-32.0); Mean Corpuscular Hgb Conc. 32.8 g/dL (32.0-36.0); Mean Corpuscular Volume 89.2 fL (80.0-100.0); Monocytes # (auto) 1.8 10 ^3/uL (0-1.3); Monocytes % (auto) 9.5 % (0.0-12.0); Neutrophils # (auto) 14.3 10 ^3/uL (1.6-8.6); Neutrophils % (auto) 77.1 % (37.0-80.0); Red Blood Cells 4.84 10^6/uL (4.5-5.90); Red Cell Distribution Width 18.8 % (11.8-14.3); White Blood Cell 18.5 10^3/uL (4.4-10.8)
[2023-12-08 01:44] LABS: INR 1.12 (0.9-1.15); Partial Thromboplastin Time 29.9 SEC (24.5-34.5); Prothrombin Time 11.7 sec (9.3-11.8)
[2023-12-08 02:02] LABS: Albumin 3.8 g/dL (3.2-4.8); Alkaline Phosphatase 91 U/L (46-116); Anion Gap 6 (5-15); Aspartate Aminotransferase 15 U/L (13-40); BUN/Creatinine Ratio 12.8 (10.0-20.0); Blood Urea Nitrogen 11 mg/dL (9-23); Calcium 9.3 mg/dL (8.7-10.4); Carbon Dioxide 30 mmol/L (20-30); Chloride 101 mmol/L (98-107); Glucose 97 mg/dL (74-106); Potassium 4.1 mmol/L (3.5-5.1); Sodium 137 mmol/L (136-145)
[2023-12-08 02:03] LABS: Bilirubin, Total 0.5 mg/dL (0.2-1.0); Total Protein 6.8 g/dL (5.7-8.2)
[2023-12-08 02:06] LABS: Alanine Aminotransferase < 9 U/L (7-40)
[2023-12-08] MEDS: dilTIAZem 25 MG/5 ML VIAL IV ONE ×2 (02:31→22:17)
[2023-12-08] MEDS: MORPHINE SULFATE 4 MG/ML SYR/VIAL IV ONE (03:18)
[2023-12-08] MEDS: ALBUTEROL SULF 2.5 MG/0.5ML(0.5%) NEB SOLN NEB ONE (03:32)
[2023-12-08 04:19] LABS: Urine Bacteria NONE SEEN /hpf (None Seen); Urine Blood Negative /uL (Negative); Urine Clarity Clear (Clear); Urine Color Yellow (Yellow); Urine Mucus FEW (None Seen); Urine Protein, UAD TRACE (Negative); Urine Specific Gravity 1.019 (1.001-1.035); Urine WBC 1 /hpf (0 - 3); Urine pH 5.5 (5.0-8.0)
[2023-12-08] MEDS: ROCURONIUM 10MG/ML 10ML VIAL IV ONE ×2 (04:30→04:32)
[2023-12-08] MEDS: ETOMIDATE (2MG/ML) 20ML VIAL IV ONE ×2 (04:30→04:31)
[2023-12-08] MEDS: PROPOFOL 100 ML IV ONE (04:32)
[2023-12-08] MEDS: PROPOFOL 100 ML IV SCH (04:36)
[2023-12-08] MEDS ORDERED: MORPHINE SULFATE INJ 2 MG/ml SYRG IV PRN (05:00)
[2023-12-08] MEDS ORDERED: ACETAMINOPHEN 325 MG TAB PO PRN (05:00)
[2023-12-08] MEDS ORDERED: NITROGLYCERIN 0.4 MG SL TAB SL PRN (05:00)
[2023-12-08] MEDS: fentaNYL Drip 2500mCg/250mlNS 250 ML IV SCH (05:49)
[2023-12-08 05:59] LABS: Basophils # (auto) 0 10 ^3/uL (0-0.2); Basophils % (auto) 0.2 % (0.0-2.0); Eosinophils # (auto) 0.1 10 ^3/uL (0-0.8); Eosinophils % (auto) 0.3 % (0.0-7.0); Hematocrit 47.8 % (41.0-53.0); Hemoglobin 15.3 g/dL (13.5-17.5); Lymphocytes # (auto) 1.6 10 ^3/uL (0.4-5.4); Lymphocytes % (auto) 7.1 % (10.0-50.0); Mean Corpuscular Hemoglobin 29.1 pg (28.0-32.0); Mean Corpuscular Hgb Conc. 32.1 g/dL (32.0-36.0); Mean Corpuscular Volume 90.6 fL (80.0-100.0); Monocytes # (auto) 1.7 10 ^3/uL (0-1.3); Monocytes % (auto) 7.6 % (0.0-12.0); Neutrophils # (auto) 18.9 10 ^3/uL (1.6-8.6); Neutrophils % (auto) 84.8 % (37.0-80.0); Nucleated Red Blood Cells % 0.1 %; Red Blood Cells 5.28 10^6/uL (4.5-5.90); Red Cell Distribution Width 18.9 % (11.8-14.3); White Blood Cell 22.3 10^3/uL (4.4-10.8)
[2023-12-08 06:06] LABS: Calcium 9.5 mg/dL (8.7-10.4); Chloride 101 mmol/L (98-107); Potassium 4.1 mmol/L (3.5-5.1); Sodium 135 mmol/L (136-145)
[2023-12-08 06:07] LABS: Anion Gap 9 (5-15); Carbon Dioxide 25 mmol/L (20-30)
[2023-12-08 06:12] LABS: BUN/Creatinine Ratio 10.7 (10.0-20.0); Blood Urea Nitrogen 11 mg/dL (9-23); Glucose 180 mg/dL (74-106)
[2023-12-08 06:17] LABS: Base Excess -2.1 mmol/L (-2.0-2.0)
[2023-12-08] MEDS: NOREPINEPHRINE 8 MG/250ML KIT 250 ML IV SCH (07:00)
[2023-12-08] MEDS: ALBUTEROL SULF 2.5 MG/0.5ML(0.5%) NEB SOLN NEB SCH (07:05)
[2023-12-08] MEDS: IPRATROPIUM BROM 0.5 MG/2.5ML INH SOL NEB SCH (07:05)
[2023-12-08] MEDS: NOREPINEPHRINE 8 MG/250ML KIT 250 ML IV ONE (07:26)
[2023-12-08] MEDS ORDERED: SODIUM CHLORIDE 0.9% 1,000 ML IV SCH (07:30)
[2023-12-08] MEDS ORDERED: ACETAMINOPHEN 650 MG RECT SUPP PR PRN (07:45)
[2023-12-08] MEDS ORDERED: DEXTROSE (50%) 50ML SYRG IV PRN (08:15)
[2023-12-08] MEDS: D5W/SOD CHLO 0.9% 1,000 ML IV SCH ×2 (08:15→15:15)
[2023-12-08 08:57] LABS: Base Excess -0.3 mmol/L (-2.0-2.0)
[2023-12-08] MEDS: ENOXAPARIN SOD 40 MG/0.4 ML SYRINGE SC SCH (09:23)
[2023-12-08] MEDS: levoFLOXacin 500MG 100 ML IV SCH (09:23)
[2023-12-08] MEDS: ACCU-CHEK COMFORT CURVE STRIP VI SCH (11:25)
[2023-12-08] MEDS: InsuLIN REG 1unit/0.01ml Soln (100units/ml) SC SCH (11:25)
[2023-12-08] MEDS: NOREPINEPHRINE BITARTRATE 32 MG in SODIUM CHL 0.9% 218 ML IV SCH (11:30)
[2023-12-08] MEDS: MIDAZOLAM DRIP 50 mg/50mL 50 ML IV SCH (11:57)
[2023-12-08] MEDS: PHENYLEPHRINE INJ 80 MG in SODIUM CHL 0.9% 242 ML IV SCH (12:59)
[2023-12-08] MEDS ORDERED: VANCOMYCIN PER PHARMACY 0 MG IV SCH (15:15)
[2023-12-08] MEDS: PIPERACILLIN-TAZOB 3.375GM 100 ML IV SCH (15:53)
[2023-12-08] MEDS: VANCOMYCIN 1GM/200ML 200 ML IV ONE (15:53)
[2023-12-08 16:51] LABS: Lactic Acid w/Reflex 2.5 mmol/L (0.4-2.0)
[2023-12-08] MEDS ORDERED: ACETAMINOPHEN 650 mg PER 20.3 mL UD GT PRN (18:30)
[2023-12-08] MEDS: DIGOXIN (250MCG/ML) 2 ML AMPULE IV ONE (19:57)
[2023-12-08] MEDS: dilTIAZem 125mg/125ml BAG KIT 100 ML IV SCH (22:00)
[2023-12-08] MEDS: AMIODARONE BOLUS KIT 100 ML IV ONE (22:00)
[2023-12-08] MEDS: HYDROCORTISONE SOD SUCC 100 MG/2ML INJ VIAL IV SCH (22:00)
[2023-12-08] MEDS: AMIODARONE 450mg/250ml AE 250 ML IV SCH (22:15)
[2023-12-08 23:31] LABS: Lactic Acid w/Reflex 4.7 mmol/L (0.4-2.0)
[2023-12-09] VITALS (110 sets, daily range): BP systolic 79–235; BP diastolic 46–121; PULSE 69–92; RESP 16–26; TEMP 98.1–99.7; O2SAT 98–100
[2023-12-09] MEDS: SODIUM CHLORIDE 0.9% 1,000 ML IV ONE (02:15)
[2023-12-09] MEDS: VANCOMYCIN 750mg/150ml 150 ML IV SCH (04:03)
[2023-12-09] MEDS: AMIODARONE 450mg/250ml AE 250 ML IV SCH (04:15)
[2023-12-09 04:23] LABS: Basophils # (auto) 0 10 ^3/uL (0-0.2); Basophils % (auto) 0.1 % (0.0-2.0); Eosinophils # (auto) 0 10 ^3/uL (0-0.8); Hematocrit 38.4 % (41.0-53.0); Hemoglobin 12.3 g/dL (13.5-17.5); Lymphocytes # (auto) 0.5 10 ^3/uL (0.4-5.4); Lymphocytes % (auto) 2.5 % (10.0-50.0); Mean Corpuscular Hemoglobin 29.1 pg (28.0-32.0); Mean Corpuscular Hgb Conc. 31.9 g/dL (32.0-36.0); Mean Corpuscular Volume 91.1 fL (80.0-100.0); Monocytes # (auto) 0.9 10 ^3/uL (0-1.3); Monocytes % (auto) 4.7 % (0.0-12.0); Neutrophils # (auto) 17.8 10 ^3/uL (1.6-8.6); Neutrophils % (auto) 92.7 % (37.0-80.0); Red Blood Cells 4.22 10^6/uL (4.5-5.90); Red Cell Distribution Width 19.6 % (11.8-14.3); White Blood Cell 19.1 10^3/uL (4.4-10.8)
[2023-12-09 04:41] LABS: Albumin 3.1 g/dL (3.2-4.8); Alkaline Phosphatase 79 U/L (46-116); Anion Gap 6 (5-15); Aspartate Aminotransferase 16 U/L (13-40); BUN/Creatinine Ratio 13.4 (10.0-20.0); Bilirubin, Total 0.3 mg/dL (0.2-1.0); Blood Urea Nitrogen 17 mg/dL (9-23); Calcium 8.4 mg/dL (8.7-10.4); Carbon Dioxide 24 mmol/L (20-30); Glucose 205 mg/dL (74-106); Potassium 4.1 mmol/L (3.5-5.1); Sodium 141 mmol/L (136-145); Total Protein 5.9 g/dL (5.7-8.2)
[2023-12-09 04:58] LABS: Alanine Aminotransferase < 9 U/L (7-40); Chloride 111 mmol/L (98-107)
[2023-12-09 05:30] LABS: Lactic Acid w/Reflex 2.1 mmol/L (0.4-2.0)
[2023-12-09 07:35] LABS: Base Excess -1.9 mmol/L (-2.0-2.0)
[2023-12-09] MEDS: PANTOPRAZOLE 40 MG/10 ML VIAL INJ IV SCH (07:57)
[2023-12-09] MEDS: DIGOXIN (250MCG/ML) 2 ML AMPULE IV SCH (07:58)
[2023-12-09] MEDS ORDERED: EPINEPHrine HCL 1 MG/1 ML AMP ONE (10:20)
[2023-12-09] MEDS ORDERED: LIDOCAINE 2%HCL (LOCAL ANESTH.) INJ 20ML MDV ONE (10:20)
[2023-12-09] MEDS ORDERED: GLYCOPYRROLATE 0.2 MG/ML 1ML VIAL ONE (10:20)
[2023-12-09] MEDS ORDERED: LIDOCAINE HCL 2% TOP JELLY 5ML TOP ONE (10:21)
[2023-12-09] MEDS ORDERED: MIDAZOLAM HCL 5 MG/ML-1ML VIAL ONE (10:21)
[2023-12-09] MEDS ORDERED: fentaNYL CITRATE 100 MCG/2 ML VL ONE (10:22)
[2023-12-09] MEDS: LIDOCAINE 2% JELLY 11ml (GLYDO) ONE (10:25)
[2023-12-09 14:09] LABS: Magnesium 1.9 mg/dL (1.6-2.6)
[2023-12-09 14:10] LABS: Phosphorus 3.7 mg/dL (2.4-5.1)
[2023-12-09] MEDS ORDERED: AMINO ACID INFUSION IN D10W 1,000 ML IV SCH (20:00)
[2023-12-09] MEDS: AMINO ACID INFUSION IN D10W 1,000 ML IV SCH (21:12)
[2023-12-09] MEDS ORDERED: InsuLIN REG 1unit/0.01ml Soln (100units/ml) SC SCH (22:00)
[2023-12-09] MEDS ORDERED: CLINIMIX PER PHARMACY 0 ML IV SCH (22:00)
[2023-12-10] VITALS (106 sets, daily range): BP systolic 53–219; BP diastolic 41–103; PULSE 71–180; RESP 12–28; TEMP 97.7–99.9; O2SAT 93–100
[2023-12-10] MEDS: InsuLIN REG 1unit/0.01ml Soln (100units/ml) SC SCH
[2023-12-10] MEDS: ACCU-CHEK COMFORT CURVE STRIP VI SCH
[2023-12-10] MEDS ORDERED: DEXTROSE (50%) 50ML SYRG IV SCH
[2023-12-10 03:50] LABS: Hematocrit 35.1 % (41.0-53.0); Mean Corpuscular Hemoglobin 28.3 pg (28.0-32.0); Mean Corpuscular Hgb Conc. 31.4 g/dL (32.0-36.0); Mean Corpuscular Volume 90.2 fL (80.0-100.0); Red Blood Cells 3.89 10^6/uL (4.5-5.90); Red Cell Distribution Width 19.4 % (11.8-14.3); White Blood Cell 26.9 10^3/uL (4.4-10.8)
[2023-12-10 03:53] LABS: Band Neutrophils % (manual) 0; Basophils % (manual) 0 (0.0-2.0); Blast Cells 0; Eosinophils % (manual) 0 (0-7); Metamyelocytes % 0; Myelocytes % 0; Promyelocytes % 0; Reactive Lymphocytes 0
[2023-12-10 04:03] LABS: Potassium 3.5 mmol/L (3.5-5.1)
[2023-12-10 04:04] LABS: Calcium 8.8 mg/dL (8.7-10.4)
[2023-12-10 04:09] LABS: BUN/Creatinine Ratio 12.8 (10.0-20.0)
[2023-12-10 04:10] LABS: Magnesium 1.9 mg/dL (1.6-2.6)
[2023-12-10 04:11] LABS: Albumin 3.1 g/dL (3.2-4.8); Phosphorus 2.2 mg/dL (2.4-5.1)
[2023-12-10 07:25] LABS: Base Excess -0.5 mmol/L (-2.0-2.0)
[2023-12-10 08:16] LABS: Lymphocytes % (manual) 3 (10.0-50.0); Monocytes % (manual) 4 (0-12)
[2023-12-10 08:17] LABS: Anisocytosis Slight; Hypochromia Slight; Platelet Estimate Adequate
[2023-12-10] MEDS: PROPOFOL 100 ML IV SCH (09:45)
[2023-12-10] MEDS: POTASSIUM PHOSP 22MEQ(15MMOLE) in NS 100 ML IV ONE (10:00)
[2023-12-10] MEDS: VANCOMYCIN 1GM/200ML 200 ML IV SCH (15:29)
[2023-12-10] MEDS: PIPERACILLIN-TAZOB 3.375GM 100 ML IV SCH (15:29)
[2023-12-10] MEDS: AMIODARONE BOLUS KIT 100 ML IV ONE ×2 (17:14→17:15)
[2023-12-10] MEDS: ROCURONIUM 10MG/ML 10ML VIAL IV ONE (17:48)
[2023-12-10 18:40] LABS: Amphetamine Screen, Urine Neg (NEGATIVE); Barbiturate Scree,Urine Neg (NEGATIVE); Benzodiazephine Screen, Urine Pos (NEGATIVE); Cannabinoid Screen, Urine Neg (NEGATIVE); Cocaine Screen, Urine Neg (NEGATIVE); Opiate Scree,Urine Neg (NEGATIVE); Phencyclidine Screen, Urine Neg (NEGATIVE)
[2023-12-11] VITALS (108 sets, daily range): BP systolic 78–150; BP diastolic 45–98; PULSE 63–78; RESP 12–28; TEMP 96.6–99.1; O2SAT 95–100
[2023-12-11 04:05] LABS: Hemoglobin 11.3 g/dL (13.5-17.5); Mean Corpuscular Hemoglobin 28.9 pg (28.0-32.0); Mean Corpuscular Hgb Conc. 31.4 g/dL (32.0-36.0); Red Blood Cells 3.92 10^6/uL (4.5-5.90); Red Cell Distribution Width 19.8 % (11.8-14.3); White Blood Cell 26.1 10^3/uL (4.4-10.8)
[2023-12-11 04:17] LABS: Alkaline Phosphatase 73 U/L (46-116); Anion Gap 5 (5-15); BUN/Creatinine Ratio 17.8 (10.0-20.0); Blood Urea Nitrogen 18 mg/dL (9-23); Carbon Dioxide 29 mmol/L (20-30); Chloride 114 mmol/L (98-107); Glucose 148 mg/dL (74-106); Magnesium 2.2 mg/dL (1.6-2.6); Potassium 3.5 mmol/L (3.5-5.1); Sodium 148 mmol/L (136-145)
[2023-12-11 04:18] LABS: Albumin 3.4 g/dL (3.2-4.8); Aspartate Aminotransferase 9 U/L (13-40); Bilirubin, Total 0.2 mg/dL (0.2-1.0); Phosphorus 2.2 mg/dL (2.4-5.1); Total Protein 6.2 g/dL (5.7-8.2)
[2023-12-11 04:25] LABS: Basophils % (manual) 0 (0.0-2.0); Blast Cells 0; Eosinophils % (manual) 0 (0-7); Metamyelocytes % 0; Myelocytes % 0; Promyelocytes % 0; Reactive Lymphocytes 0
[2023-12-11 04:33] LABS: Alanine Aminotransferase < 9 U/L (7-40)
[2023-12-11 05:06] LABS: Band Neutrophils % (manual) 1; Lymphocytes % (manual) 4 (10.0-50.0); Monocytes % (manual) 5 (0-12); Platelet Estimate Adequate
[2023-12-11 05:07] LABS: Anisocytosis Slight; Large Platelets FEW
[2023-12-11 06:47] LABS: Base Excess -1.4 mmol/L (-2.0-2.0)
[2023-12-11] MEDS: POTASSIUM PHOSPHATE 22 MEQ in SODIUM CHL 0.9% 100 ML IV ONE (15:29)
[2023-12-11] MEDS: IPRATROPIUM BROM 0.5 MG/2.5ML INH SOL NEB SCH (22:13)
[2023-12-11] MEDS: ALBUTEROL SULF 2.5 MG/0.5ML(0.5%) NEB SOLN NEB SCH (22:13)
[2023-12-11] MEDS: ONDANSETRON HCL 4 MG/2 ML VIAL IV PRN (23:05)
[2023-12-12] VITALS (105 sets, daily range): BP systolic 97–173; BP diastolic 47–116; PULSE 55–77; RESP 8–29; TEMP 97–99; O2SAT 96–100
[2023-12-12 02:15] LABS: Hemoglobin 10.7 g/dL (13.5-17.5)
[2023-12-12 02:16] LABS: Hematocrit 34.2 % (41.0-53.0); Mean Corpuscular Hemoglobin 28.7 pg (28.0-32.0); Mean Corpuscular Hgb Conc. 31.4 g/dL (32.0-36.0); Mean Corpuscular Volume 91.4 fL (80.0-100.0); Red Blood Cells 3.74 10^6/uL (4.5-5.90); White Blood Cell 26.9 10^3/uL (4.4-10.8)
[2023-12-12 02:17] LABS: Red Cell Distribution Width 20.2 % (11.8-14.3)
[2023-12-12 02:19] LABS: Band Neutrophils % (manual) 0; Basophils % (manual) 0 (0.0-2.0); Blast Cells 0; Eosinophils % (manual) 0 (0-7); Metamyelocytes % 0; Myelocytes % 0; Promyelocytes % 0; Reactive Lymphocytes 0
[2023-12-12 02:23] LABS: Chloride 114 mmol/L (98-107); Potassium 3.9 mmol/L (3.5-5.1); Sodium 145 mmol/L (136-145)
[2023-12-12 02:24] LABS: Anion Gap 3 (5-15); Carbon Dioxide 28 mmol/L (20-30)
[2023-12-12 02:25] LABS: Calcium 9.1 mg/dL (8.7-10.4)
[2023-12-12 02:29] LABS: Glucose 158 mg/dL (74-106)
[2023-12-12 02:30] LABS: BUN/Creatinine Ratio 20.5 (10.0-20.0); Blood Urea Nitrogen 18 mg/dL (9-23); Magnesium 2.3 mg/dL (1.6-2.6)
[2023-12-12 02:32] LABS: Phosphorus 2.7 mg/dL (2.4-5.1)
[2023-12-12 06:36] LABS: Lymphocytes % (manual) 2 (10.0-50.0)
[2023-12-12 06:37] LABS: Anisocytosis Slight; Monocytes % (manual) 4 (0-12); Platelet Estimate Adequate
[2023-12-12 07:32] LABS: Base Excess 0.2 mmol/L (-2.0-2.0)
[2023-12-12] MEDS: ROCURONIUM 10MG/ML 10ML VIAL IV PRN (10:04)
[2023-12-12] MEDS ORDERED: Jevity 1.2 Cal/Fiber 1 Liter GT SCH (15:00)
[2023-12-13] VITALS (108 sets, daily range): BP systolic 89–147; BP diastolic 45–85; PULSE 59–67; RESP 12–29; TEMP 97–98.2; O2SAT 92–100
[2023-12-13 04:22] LABS: Basophils # (auto) 0 10 ^3/uL (0-0.2); Basophils % (auto) 0.2 % (0.0-2.0); Eosinophils # (auto) 0 10 ^3/uL (0-0.8); Hematocrit 33.1 % (41.0-53.0); Hemoglobin 10.6 g/dL (13.5-17.5); Lymphocytes # (auto) 0.4 10 ^3/uL (0.4-5.4); Lymphocytes % (auto) 1.8 % (10.0-50.0); Mean Corpuscular Hemoglobin 29.3 pg (28.0-32.0); Mean Corpuscular Hgb Conc. 31.9 g/dL (32.0-36.0); Mean Corpuscular Volume 91.8 fL (80.0-100.0); Monocytes # (auto) 1.3 10 ^3/uL (0-1.3); Monocytes % (auto) 5.4 % (0.0-12.0); Neutrophils # (auto) 21.6 10 ^3/uL (1.6-8.6); Neutrophils % (auto) 92.6 % (37.0-80.0); Red Cell Distribution Width 19.6 % (11.8-14.3); White Blood Cell 23.4 10^3/uL (4.4-10.8)
[2023-12-13 04:40] LABS: Albumin 3.3 g/dL (3.2-4.8); Alkaline Phosphatase 65 U/L (46-116); Anion Gap 0 (5-15); Aspartate Aminotransferase 8 U/L (13-40); Blood Urea Nitrogen 21 mg/dL (9-23); Calcium 9.2 mg/dL (8.7-10.4); Carbon Dioxide 31 mmol/L (20-30); Chloride 116 mmol/L (98-107); Glucose 135 mg/dL (74-106); Magnesium 2.5 mg/dL (1.6-2.6); Phosphorus 2.9 mg/dL (2.4-5.1); Potassium 4.1 mmol/L (3.5-5.1); Sodium 147 mmol/L (136-145)
[2023-12-13 04:41] LABS: Bilirubin, Total 0.2 mg/dL (0.2-1.0); Total Protein 5.8 g/dL (5.7-8.2)
[2023-12-13 04:49] LABS: Alanine Aminotransferase < 9 U/L (7-40)
[2023-12-13 08:00] LABS: Base Excess 2.7 mmol/L (-2.0-2.0)
[2023-12-13] MEDS: VANCOMYCIN 1GM/200ML 200 ML IV SCH (15:10)
[2023-12-14] VITALS (111 sets, daily range): BP systolic 78–129; BP diastolic 42–73; PULSE 64–80; RESP 13–28; TEMP 97–99.3; O2SAT 94–100
[2023-12-14 04:05] LABS: Basophils # (auto) 0 10 ^3/uL (0-0.2); Basophils % (auto) 0.2 % (0.0-2.0); Eosinophils # (auto) 0 10 ^3/uL (0-0.8); Eosinophils % (auto) 0.1 % (0.0-7.0); Hematocrit 33.5 % (41.0-53.0); Hemoglobin 10.9 g/dL (13.5-17.5); Lymphocytes # (auto) 0.5 10 ^3/uL (0.4-5.4); Lymphocytes % (auto) 2.3 % (10.0-50.0); Mean Corpuscular Hemoglobin 30.1 pg (28.0-32.0); Mean Corpuscular Hgb Conc. 32.4 g/dL (32.0-36.0); Mean Corpuscular Volume 92.7 fL (80.0-100.0); Monocytes # (auto) 1.5 10 ^3/uL (0-1.3); Monocytes % (auto) 6.5 % (0.0-12.0); Neutrophils % (auto) 90.9 % (37.0-80.0); Nucleated Red Blood Cells % 0.2 %; Red Blood Cells 3.62 10^6/uL (4.5-5.90); Red Cell Distribution Width 20.2 % (11.8-14.3); White Blood Cell 23.1 10^3/uL (4.4-10.8)
[2023-12-14 04:22] LABS: Chloride 115 mmol/L (98-107); Potassium 4.3 mmol/L (3.5-5.1); Sodium 148 mmol/L (136-145)
[2023-12-14 04:23] LABS: Anion Gap 1 (5-15); Calcium 9.1 mg/dL (8.7-10.4); Carbon Dioxide 32 mmol/L (20-30)
[2023-12-14 04:28] LABS: BUN/Creatinine Ratio 32.9 (10.0-20.0); Blood Urea Nitrogen 24 mg/dL (9-23); Glucose 123 mg/dL (74-106)
[2023-12-14 04:29] LABS: Magnesium 2.5 mg/dL (1.6-2.6)
[2023-12-14 07:58] LABS: Base Excess 0.9 mmol/L (-2.0-2.0)
[2023-12-14] MEDS: VANCOMYCIN 1GM/200ML 200 ML IV SCH (11:49)
[2023-12-15] VITALS (110 sets, daily range): BP systolic 83–152; BP diastolic 45–90; PULSE 70–88; RESP 12–33; TEMP 97.5–99; O2SAT 90–100
[2023-12-15] MEDS: FREE WATER GT SCH (00:12)
[2023-12-15 04:09] LABS: Alanine Aminotransferase 19 U/L (7-40); Albumin 3.5 g/dL (3.2-4.8); Alkaline Phosphatase 75 U/L (46-116); Anion Gap 3 (5-15); Aspartate Aminotransferase 24 U/L (13-40); BUN/Creatinine Ratio 30.2 (10.0-20.0); Bilirubin, Total 0.3 mg/dL (0.2-1.0); Blood Urea Nitrogen 29 mg/dL (9-23); Calcium 9.3 mg/dL (8.7-10.4); Carbon Dioxide 30 mmol/L (20-30); Chloride 114 mmol/L (98-107); Glucose 136 mg/dL (74-106); Magnesium 2.8 mg/dL (1.6-2.6); Phosphorus 4.5 mg/dL (2.4-5.1); Potassium 5.2 mmol/L (3.5-5.1); Sodium 147 mmol/L (136-145); Total Protein 6.2 g/dL (5.7-8.2)
[2023-12-15 07:07] LABS: Base Excess -0.7 mmol/L (-2.0-2.0)
[2023-12-15 12:21] LABS: Base Excess 0.3 mmol/L (-2.0-2.0)
[2023-12-15 15:18] LABS: Base Excess 1.3 mmol/L (-2.0-2.0)
[2023-12-16] VITALS (110 sets, daily range): BP systolic 92–153; BP diastolic 48–81; PULSE 66–106; RESP 12–33; TEMP 97.9–99.1; O2SAT 89–100
[2023-12-16 03:51] LABS: Basophils # (auto) 0.2 10 ^3/uL (0-0.2); Basophils % (auto) 0.9 % (0.0-2.0); Eosinophils # (auto) 0 10 ^3/uL (0-0.8); Hematocrit 33.6 % (41.0-53.0); Hemoglobin 10.6 g/dL (13.5-17.5); Lymphocytes # (auto) 0.6 10 ^3/uL (0.4-5.4); Lymphocytes % (auto) 2.7 % (10.0-50.0); Mean Corpuscular Hemoglobin 29.2 pg (28.0-32.0); Mean Corpuscular Hgb Conc. 31.5 g/dL (32.0-36.0); Mean Corpuscular Volume 92.8 fL (80.0-100.0); Monocytes # (auto) 1.4 10 ^3/uL (0-1.3); Monocytes % (auto) 6.2 % (0.0-12.0); Neutrophils # (auto) 19.8 10 ^3/uL (1.6-8.6); Neutrophils % (auto) 90.2 % (37.0-80.0); Nucleated Red Blood Cells % 0.3 %; Red Blood Cells 3.62 10^6/uL (4.5-5.90)
[2023-12-16 03:55] LABS: Red Cell Distribution Width 20.3 % (11.8-14.3)
[2023-12-16 04:06] LABS: Alanine Aminotransferase 20 U/L (7-40); Albumin 3.3 g/dL (3.2-4.8); Alkaline Phosphatase 75 U/L (46-116); Anion Gap 1 (5-15); BUN/Creatinine Ratio 37.8 (10.0-20.0); Blood Urea Nitrogen 28 mg/dL (9-23); Calcium 9.1 mg/dL (8.7-10.4); Carbon Dioxide 32 mmol/L (20-30); Chloride 113 mmol/L (98-107); Glucose 135 mg/dL (74-106); Magnesium 2.5 mg/dL (1.6-2.6); Potassium 4.5 mmol/L (3.5-5.1); Sodium 146 mmol/L (136-145)
[2023-12-16 04:07] LABS: Aspartate Aminotransferase 30 U/L (13-40)
[2023-12-16 04:08] LABS: Bilirubin, Total 0.3 mg/dL (0.2-1.0); Phosphorus 2.1 mg/dL (2.4-5.1)
[2023-12-16 04:27] LABS: Platelet Estimate Adequate
[2023-12-16 04:29] LABS: Anisocytosis Slight
[2023-12-16 04:30] LABS: Stomatocytes Few
[2023-12-16 04:31] LABS: Ovalocytes FEW
[2023-12-16 08:34] LABS: Base Excess 5.2 mmol/L (-2.0-2.0)
[2023-12-16] MEDS: VANCOMYCIN 1GM/200ML 200 ML IV SCH (11:51)
[2023-12-17] VITALS (79 sets, daily range): BP systolic 91–207; BP diastolic 51–99; PULSE 68–106; RESP 0–39; TEMP 98.2–99.3; O2SAT 65–99
[2023-12-17 04:05] LABS: Anion Gap 1 (5-15); Carbon Dioxide 34 mmol/L (20-30); Chloride 111 mmol/L (98-107); Potassium 5.5 mmol/L (3.5-5.1); Sodium 146 mmol/L (136-145)
[2023-12-17 04:06] LABS: Calcium 9.1 mg/dL (8.7-10.4)
[2023-12-17 04:07] LABS: Hemoglobin 10.7 g/dL (13.5-17.5)
[2023-12-17 04:10] LABS: Hematocrit 34.9 % (41.0-53.0); Mean Corpuscular Hemoglobin 28.8 pg (28.0-32.0); Mean Corpuscular Hgb Conc. 30.7 g/dL (32.0-36.0); Mean Corpuscular Volume 93.6 fL (80.0-100.0); Red Blood Cells 3.73 10^6/uL (4.5-5.90)
[2023-12-17 04:11] LABS: BUN/Creatinine Ratio 37.5 (10.0-20.0); Blood Urea Nitrogen 27 mg/dL (9-23); GFR African American 140 mL/min; GFR Non-African American 116 mL/min; Glucose 125 mg/dL (74-106)
[2023-12-17 04:12] LABS: Albumin 3.3 g/dL (3.2-4.8); Magnesium 2.5 mg/dL (1.6-2.6)
[2023-12-17 04:13] LABS: Phosphorus 2.5 mg/dL (2.4-5.1)
[2023-12-17 04:28] LABS: Red Cell Distribution Width 20.6 % (11.8-14.3)
[2023-12-17 04:29] LABS: Basophils % (manual) 0 (0.0-2.0); Blast Cells 0; Eosinophils % (manual) 0 (0-7); Myelocytes % 0; Promyelocytes % 0; Reactive Lymphocytes 0
[2023-12-17 06:25] LABS: Anisocytosis Slight; Band Neutrophils % (manual) 3; Lymphocytes % (manual) 2 (10.0-50.0); Metamyelocytes % 1; Monocytes % (manual) 3 (0-12); Platelet Estimate Adequate; Polychromasia Slight
[2023-12-17 06:26] LABS: Macrocytosis Slight
[2023-12-17] MEDS: PROPOFOL 100 ML IV SCH (07:45)
[2023-12-17] MEDS: fentaNYL Drip 2500mCg/250mlNS 250 ML IV SCH (07:45)
[2023-12-17 07:59] LABS: Base Excess 4.2 mmol/L (-2.0-2.0)
[2023-12-17] MEDS ORDERED: DOPamine 1600MCG/ML D5W 250 ML IV ONE (17:53)
== END 2023-12-17 18:06 | DRG 207 ==
LOC: EDBD 00:50 → ER 00:50 → TELE 05:10 → ICU WEST 06:39
PROVIDERS: ADMIT Nurse Practitioner Family; ATTEND Internal Medicine
PROC: 5A1955Z Respiratory Ventilation, Greater than 96 Consecutive Hours (ICD-10-PCS; principal; 2023-12-08)
PROC: 02HV33Z Insertion of Infusion Device into Superior Vena Cava, Percutaneous Approach (ICD-10-PCS; 2023-12-08)
PROC: B548ZZA Ultrasonography of Superior Vena Cava, Guidance (ICD-10-PCS; 2023-12-08)
PROC: 03HY32Z Insertion of Monitoring Device into Upper Artery, Percutaneous Approach (ICD-10-PCS; 2023-12-08)
PROC: 5A09357 Assistance with Respiratory Ventilation, Less than 24 Consecutive Hours, Continuous Positive Airway Pressure (ICD-10-PCS; 2023-12-08)
PROC: 0BH17EZ Insertion of Endotracheal Airway into Trachea, Via Natural or Artificial Opening (ICD-10-PCS; 2023-12-08)
PROC: 0B978ZZ Drainage of Left Main Bronchus, Via Natural or Artificial Opening Endoscopic (ICD-10-PCS; 2023-12-09)
DX: J96.01 Acute respiratory failure with hypoxia (principal); J18.9 Pneumonia, unspecified organism; J98.19 Other pulmonary collapse; J44.1 Chronic obstructive pulmonary disease with (acute) exacerbation; I48.20 Chronic atrial fibrillation, unspecified; J44.0 Chronic obstructive pulmonary disease with (acute) lower respiratory infection; E87.1 Hypo-osmolality and hyponatremia; C34.91 Malignant neoplasm of unspecified part of right bronchus or lung; E87.4 Mixed disorder of acid-base balance; Z66 Do not resuscitate; I11.0 Hypertensive heart disease with heart failure; I50.9 Heart failure, unspecified; E78.5 Hyperlipidemia, unspecified; I95.9 Hypotension, unspecified; R91.8 Other nonspecific abnormal finding of lung field; I25.2 Old myocardial infarction; Z83.3 Family history of diabetes mellitus; Z80.9 Family history of malignant neoplasm, unspecified; Z87.891 Personal history of nicotine dependence; Z82.3 Family history of stroke; Z80.1 Family history of malignant neoplasm of trachea, bronchus and lung
CPT/HCPCS: 31500; 31645; 36415; 36600; 71045; 80048; 80053; 80069; 80202; 80307; 81001; 82805; 82962; 83605; 83735; 83880; 84100; 84484; 85007; 85025; 85027; 85610; 85730; 87040; 87070; 87081; 87086; 87205; 93005; 94002; 94003; 94640; 94660; 96374; 99291; C9113; G0378; J0171; J1815; J1956; J2250; J2405; J2543; J2704; J7060